=== PATIENT | male | born 1935 | race Asian ===

== ENCOUNTER 2016-11-02 21:16 | Inpatient (IN) | payer MEDICARE, BC ==
[~2016-11-02] VITALS: Ht 170.2 cm; Wt 77.1 kg
[2016-11-02 21:21] VITALS: BP 98/68
[2016-11-02] MEDS ORDERED: Piperacillin/Tazobactam 3.375 GM in NS 110 ML IVPB ONE (22:30)
[2016-11-02] MEDS ORDERED: Zosyn 3.375gm inj ONE (22:31)
--- NOTE | 2016-11-02 22:32 | Emergency Room Report ---
History of Present Illness General Chief Complaint: Dyspnea/Respdistress Source: Family Member, Medical Record, EMS Present Illness HPI This is an 81-year-old English male with a history of dementia, recent pneumonia. He also has failure to thrive. He has an NG tube in for feeding. Per EMS from detention and per his son, he has an altered mental status. Significantly weaker. Also has some dyspnea. Per Dr. Gil, he was hypotensive at the detention. Right now, he is a full code. No coughing or congestion. No abdominal pain. Unable to get history from the patient. Allergies: Coded Allergies: No Known Allergies (Unverified , 11/02/16) Patient History Past Medical History: see triage record, old chart reviewed, dementia Past Surgical History: other Pertinent Family History: none Social History: Denies: smoking Immunizations: other Reviewed Nursing Documentation: PMH: Agreed, PSxH: Agreed Nursing Documentation-PMH Past Medical History: No History, Except For Hx Hypertension: Yes Hx Pacemaker: No - PNA Hx Diabetes: Yes Hx Dialysis: No Hx Cerebrovascular Accident: Yes Review of Systems Constitutional: Reports: weakness Eye: Denies: blurred vision, eye pain ENT: Denies: ear pain, nose congestion, throat swelling Respiratory: Reports: shortness of breath, Denies: cough Cardiovascular: Denies: chest pain, palpitations Gastrointestinal: Denies: abdominal pain, diarrhea, nausea, vomiting Musculoskeletal: Denies: back pain, joint pain Skin: Denies: rash Neurological: Denies: headache, numbness Endocrine: Denies: increased thirst, increased urine Hematologic/Lymphatic: Denies: easy bruising All Other Systems: negative except mentioned in HPI Physical Exam Vital Signs Date Time Temp Pulse Resp B/P Pulse Ox O2 Delivery O2 Flow Rate FiO2 11/02/16 21:14 97.9 98 40 98/68 98 Nasal Cannula 2.0 vitals with fever. Rectal temp 100.2 Sp02 EP Interpretation: reviewed, normal General Appearance: mild distress, lethargic, Chronically Ill Head: normocephalic, atraumatic Eyes: bilateral eye EOMI, bilateral eye PERRL ENT: dry mucus membranes, other - NG tube Neck: full range of motion, supple, no meningismus Respiratory: chest non-tender, lungs clear, normal breath sounds Cardiovascular #1: regular rate, rhythm, no murmur Gastrointestinal: non tender, no mass, no organomegaly, no bruit, distended - tympanic Musculoskeletal: other - Pressure ulcers to heels and sacrum. Psychiatric: mood/affect normal Skin: warm/dry Procedures Critical Care Time Critical Care Time Critical care is mandated in this patient who presented with sepsis. Patient require my urgent intervention to attenuate the risks of metabolic collapse which may lead to cardiovascular collapse and . Critical care time is 35 minutes excluding any reportable procedure. Critical care time included evaluation, multiple reevaluation, looking at old charts, interpreting laboratory and diagnostic data, discussing case with patient and family and consultants, and charting. Medical Decision Making Diagnostic Impression: Primary Impression: Sigmoid volvulus Additional Impressions: Sepsis Qualified Codes: A41.9 - Sepsis, unspecified organism Dehydration Aspiration pneumonia Qualified Codes: J69.0 - Pneumonitis due to inhalation of food and vomit Anemia, chronic disease Hyperglycemia due to type 2 diabetes mellitus Qualified Codes: E11.65 - Type 2 diabetes mellitus with hyperglycemia ER Course Patient presents with altered mental status and has low-grade fever. His chest x-ray showed atelectasis. It also showed a very distended colon. His abdominal exam is very tympanic and distended. CT scan show a probable sigmoid volvulus. I discussed this with the radiologist. No obvious perforation. No free air. He has a Dobhoff tube for feeding. It was very small it was not suctioning very well. I had it removed and put in an NG tube. We will to suction out his to feeding. Flatus we'll also decompressed the gut. Wide spectrum antibiotic started. His Yi was empty of urine. There was no urine output with a new Yi. Now he start making very small amount of urine after 3 L of fluid. His condition is critical. He'll be admitted to the hospital. Laboratory Tests Test 11/02/16 22:30 White Blood Count 23.1 K/UL (4.8-10.8) *H Red Blood Count 2.93 M/UL (4.70-6.10) L Hemoglobin 9.7 G/DL (14.2-18.0) L Hematocrit 28.9 % (42.0-52.0) L Mean Corpuscular Volume 99 FL (80-99) Mean Corpuscular Hemoglobin 33.1 PG (27.0-31.0) H Mean Corpuscular Hemoglobin Concent 33.5 G/DL (32.0-36.0) Red Cell Distribution Width 13.8 % (11.6-14.8) Platelet Count 428 K/UL (150-450) Mean Platelet Volume 5.8 FL (6.5-10.1) L Neutrophils (%) (Auto) % (45.0-75.0) Lymphocytes (%) (Auto) % (20.0-45.0) Monocytes (%) (Auto) % (1.0-10.0) Eosinophils (%) (Auto) % (0.0-3.0) Basophils (%) (Auto) % (0.0-2.0) Differential Total Cells Counted 100 Neutrophils % (Manual) 93 % (45-75) H Lymphocytes % (Manual) 4 % (20-45) L Monocytes % (Manual) 3 % (1-10) Eosinophils % (Manual) 0 % (0-3) Basophils % (Manual) 0 % (0-2) Band Neutrophils 0 % (0-8) Platelet Estimate Adequate Platelet Morphology Normal Hypochromasia 1+ Anisocytosis 1+ Prothrombin Time 11.0 SEC (9.30-11.50) Prothromb Time International Ratio 1.1 (0.9-1.1) Activated Partial Thromboplast Time 26 SEC (23-33) Sodium Level 141 mEQ/L (135-145) Potassium Level 3.3 mEQ/L (3.4-4.9) L Chloride Level 101 mEQ/L (98-107) Carbon Dioxide Level 23 mEQ/L (20-30) Anion Gap 17 (5-15) H Blood Urea Nitrogen 43 mg/dL (7-23) H Creatinine 1.0 mg/dL (0.7-1.2) Estimat Glomerular Filtration Rate mL/min (>60) Glucose Level 264 mg/dL (74-106) H Lactic Acid Level 4.20 mmol/L (0.66-2.22) H Calcium Level 8.7 mg/dL (8.6-10.2) Total Bilirubin 0.4 mg/dL (0.0-1.2) Aspartate Amino Transf (AST/SGOT) 101 U/L (5-40) H Alanine Aminotransferase (ALT/SGPT) 33 U/L (3-41) Alkaline Phosphatase 71 U/L (40-129) Total Creatine Kinase 102 U/L (38-174) Creatine Kinase MB 3.0 ng/mL (< 6.7) Creatine Kinase MB Relative Index 2.9 Troponin I < 0.30 ng/mL (<=0.30) Total Protein 6.8 g/dL (6.6-8.7) Albumin 2.9 g/dL (3.5-5.2) L Globulin 3.9 g/dL Albumin/Globulin Ratio 0.7 (1.0-2.7) L Lab Results Impression labs with high white count EKG Diagnostic Results Rate: normal Rhythm: NSR ST Segments: other - bifasicular block Rhythm Strip Diag. Results EP Interpretation: yes Rate: 90 Rhythm: NSR, no PVC's, no ectopy Chest X-Ray Diagnostic Results EP Interpretation: Yes Findings: no effusion, no pneumothorax, other - atelectasis. [place] sign vs free air. Number of Views: 1 Last Vital Signs Date Time Temp Pulse Resp B/P Pulse Ox O2 Delivery O2 Flow Rate FiO2 11/02/16 21:14 97.9 98 40 98/68 98 Nasal Cannula 2.0 Status: improved Disposition: ADMITTED INPATIENT Condition: Critical JONO LANGLEY M.D. Nov 02, 2016 22:32
[2016-11-02 22:41] LABS: MEAN CORPUSCULAR HEMOGLOBIN 33.1 PG (27.0-31.0); MEAN CORPUSCULAR HGB CONC 33.5 G/DL (32.0-36.0); MEAN CORPUSCULAR VOLUME 99 FL (80-99); MEAN PLATELET VOLUME 5.8 FL (6.5-10.1); PLATELET COUNT 428 K/UL (150-450); RED BLOOD COUNT 2.93 M/UL (4.70-6.10); RED CELL DISTRIBUTION WIDTH 13.8 % (11.6-14.8)
[2016-11-02 22:43] LABS: WHITE BLOOD COUNT 23.1 K/UL (4.8-10.8)
[2016-11-02 22:52] LABS: INR 1.1 (0.9-1.1)
[2016-11-02 22:58] LABS: ALANINE AMINOTRANSFERASE 33 U/L (3-41); ALBUMIN/GLOBULIN RATIO 0.7 (1.0-2.7); ANION GAP 17 (5-15); ASPARTATE AMINO TRANSFERASE 101 U/L (5-40); CALCIUM 8.7 mg/dL (8.6-10.2); CARBON DIOXIDE 23 mEQ/L (20-30); CHLORIDE 101 mEQ/L (98-107); HEMOLYSIS 12; POTASSIUM 3.3 mEQ/L (3.4-4.9); SODIUM 141 mEQ/L (135-145); TOTAL PROTEIN 6.8 g/dL (6.6-8.7); TROPONIN I < 0.30 ng/mL (<=0.30)
[2016-11-02 23:02] LABS: REFLEX LACTIC ACID YES OR NO YES
[2016-11-02 23:05] VITALS: BP 112/52
[2016-11-02 23:13] LABS: LYMPHOCYTES % (MANUAL) 4 % (20-45); NEUTROPHILS % (MANUAL) 93 % (45-75); TOTAL CELLS COUNTED 100
[2016-11-02 23:14] LABS: ANISOCYTOSIS 1+; BAND NEUTROPHILS % (MANUAL) 0 % (0-8); BASOPHILS % (MANUAL) 0 % (0-2); EOSINOPHILS % (MANUAL) 0 % (0-3); HYPOCHROMASIA 1+; PLATELET ESTIMATE ADEQUATE; PLATELET MORPHOLOGY NORMAL
[2016-11-03] VITALS (47 sets, daily range): BP systolic 0–178; BP diastolic 17–97
[2016-11-03] MEDS ORDERED: Levophed 4mg/4mL Inj IV ONE ×3 (02:55→11:46)
[2016-11-03 03:25] LABS: ABG PCO2 28.5 mmHg (35.0-45.0)
[2016-11-03 03:26] LABS: ABG ALLEN TEST POSITIVE
[2016-11-03] MEDS ORDERED: Succinylcholine 20mg/ml 10ml vial IV ONE (04:30)
[2016-11-03] MEDS ORDERED: Etomidate 40mg/20ml Inj IV ONE ×2 (04:30→16:56)
[2016-11-03 05:43] LABS: APPEARANCE,URINE CLOUDY; KETONES,URINE 2+ (NEGATIVE); LEUKOCYTE ESTERASE ,URINE 2+ (NEGATIVE); NITRITE,URINE POSITIVE (NEGATIVE); PH,URINE 5 (4.5-8.0); PROTEIN,URINE 3+ (NEGATIVE); UROBILINOGEN,URINE 4 MG/DL (0.0-1.0)
[2016-11-03 05:46] LABS: RBC,URINE TNTC /HPF (0 - 0); SQUAMOUS EPITHELIAL CELL,UR FEW /LPF (NONE/OCC)
[2016-11-03 05:47] LABS: AMORPHOUS SEDIMENT,UR MODERATE /LPF; BACTERIA,URINE MODERATE /HPF; CALCIUM OXALATE CRYSTALS,UR FEW /LPF; ICTOTEST POSITIVE
--- NOTE | 2016-11-03 06:00 | Emergency Room Report ---
Physical Exam Vital Signs Date Time Temp Pulse Resp B/P Pulse Ox O2 Delivery O2 Flow Rate FiO2 11/02/16 21:14 97.9 98 40 98/68 98 Nasal Cannula 2.0 11/03/16 01:47 100 Medical Decision Making Diagnostic Impression: Primary Impression: Sigmoid volvulus Additional Impressions: Aspiration pneumonia Qualified Codes: J69.0 - Pneumonitis due to inhalation of food and vomit Hyperglycemia due to type 2 diabetes mellitus Qualified Codes: E11.65 - Type 2 diabetes mellitus with hyperglycemia Sepsis Qualified Codes: A41.9 - Sepsis, unspecified organism Anemia, chronic disease Dehydration Proteinuria UTI (urinary tract infection) Qualified Codes: N30.00 - Acute cystitis without hematuria ER Course Patient continued to deteriorate. He remained persistently hypotensive despite fluid boluses. He was not making urine. Because of this I proceeded to intubate the patient. I explained this to family. Explained to critical condition that patient in. He may from this. I also explained that he may need surgery and he has a very high risk. They express understanding. Patient was intubated and placed on pressors. Blood pressure improved. He started to make urine now. Chest X-Ray Diagnostic Results EP Interpretation: Yes Findings: no effusion, no pneumothorax, other - atelectasis, ETT in good position. Central line in good position. Number of Views: 1 Last Vital Signs Date Time Temp Pulse Resp B/P Pulse Ox O2 Delivery O2 Flow Rate FiO2 11/03/16 04:32 122 27 40 11/03/16 04:20 90/51 100 Mechanical Ventilator 11/03/16 03:18 98.0 11/03/16 01:30 2.0 Status: worsened Disposition: ADMITTED INPATIENT Condition: Critical Referrals: NON PHYSICIAN (PCP) Central Line Central Line : Consent: Emergent Central Line Lumen: triple Maximal Sterile Barrier Tech: yes cap, yes mask, yes sterile gown, yes sterile gloves, yes large sterile sheet, yes hand hygiene, yes chlorhexidine prep Central Line Postion: internal jugular (R) Complications: none Central Line Post Position: sutured, good blood return, position confirmed w / CXR Attempts: One Patient Tolerated: Well Complications: None Progress Using ultrasound guidance, I place a triple-lumen in the right IJ. This was done under to her condition using setting to technique. Patient tolerated procedure without a problem. No complication. Intubation Intubation : Consent: Emergent Intubation Method: orotracheal Tube Size (cm): 7.5 Medications: Etomidate, Succinylcholine Breath Sounds after Intubation: equal Intubation Complications: no complications Post Intubation Xray: Yes Progress/Xray Impression: Endotracheal tube in good position. No pneumothorax Attempts: One Patient Tolerated: Well Complications: None Progress Patient intubated without difficulty. He was given etomidate and succinylcholine. Endotracheal tube confirmed by x-ray. I visualized it going through the vocal cords. There could condensation in the tube. Good CO2 color change. Equal breath sounds bilaterally. Nothing in the epigastric area. JONO LANGLEY M.D. Nov 03, 2016 06:00
[2016-11-03] MEDS ORDERED: ASPIRIN300 MG BC (06:23)
[2016-11-03] MEDS ORDERED: ASCORBIC ACID500 MG ORAL (06:23)
[2016-11-03] MEDS ORDERED: FERROUS SULFAT325 M2 ORAL (06:23)
[2016-11-03] MEDS ORDERED: MEGACE400 MG/11 PO (06:23)
[2016-11-03] MEDS ORDERED: ZINC SULFATE220 M2 ORAL (06:23)
[2016-11-03] MEDS ORDERED: SINEMET 25/1001 EA ORAL (06:23)
[2016-11-03] MEDS ORDERED: GABAPENTIN100 MG ORAL (06:23)
[2016-11-03] MEDS ORDERED: MULTIVITAMINS1 EAC2 ORAL (06:23)
[2016-11-03] MEDS ORDERED: EPLERENONE25 MG PO (06:23)
[2016-11-03] MEDS ORDERED: CLOPIDOGREL75 MG ORAL (06:23)
[2016-11-03] MEDS ORDERED: FINASTERIDE5 MG ORAL (06:23)
[2016-11-03] MEDS ORDERED: AMANTADINE50 MG/5 ML ORAL (06:23)
[2016-11-03] MEDS ORDERED: LIPITOR80 MG ORAL (06:23)
[2016-11-03 06:33] LABS: MEAN CORPUSCULAR HEMOGLOBIN 32.4 PG (27.0-31.0); MEAN CORPUSCULAR HGB CONC 33.1 G/DL (32.0-36.0); MEAN CORPUSCULAR VOLUME 98 FL (80-99); MEAN PLATELET VOLUME 6.2 FL (6.5-10.1); PLATELET COUNT 457 K/UL (150-450); RED BLOOD COUNT 2.66 M/UL (4.70-6.10); RED CELL DISTRIBUTION WIDTH 13.7 % (11.6-14.8); WHITE BLOOD COUNT 18.7 K/UL (4.8-10.8)
[2016-11-03 06:46] LABS: ANION GAP 19 (5-15); CALCIUM 7.2 mg/dL (8.6-10.2); CARBON DIOXIDE 18 mEQ/L (20-30); CHLORIDE 103 mEQ/L (98-107); HEMOLYSIS 0; SODIUM 140 mEQ/L (135-145)
[2016-11-03 06:49] LABS: POTASSIUM 2.5 mEQ/L (3.4-4.9)
[2016-11-03 06:50] LABS: REFLEX LACTIC ACID YES OR NO YES
[2016-11-03 08:00] LABS: BAND NEUTROPHILS % (MANUAL) 4 % (0-8); BASOPHILS % (MANUAL) 0 % (0-2); EOSINOPHILS % (MANUAL) 0 % (0-3); LYMPHOCYTES % (MANUAL) 5 % (20-45); NEUTROPHILS % (MANUAL) 90 % (45-75); PLATELET ESTIMATE INCREASED; PLATELET MORPHOLOGY NORMAL; TOTAL CELLS COUNTED 100
[2016-11-03] MEDS: Heparin 5000 units/ml inj SUBQ SCH ×2 (09:00→20:04)
--- NOTE | 2016-11-03 09:28 | Diagnostic Imaging Report ---
Indication: Abdominal pain Technique: Spiral acquisitions obtained through the abdomen and pelvis. No oral contrast utilized, per emergency room physician request No IV contrast utilized, per referring physician request.. Multiplanar reconstructions were generated. Total dose length product 819 mGycm. CTDIvol(s) 13 mGy Comparison: None Findings: There is anasarca, with diffuse edema of the subcutaneous, mesenteric, and retroperitoneal fat as well as small bilateral pleural effusions. The colon is massively dilated diffusely. There appears to be an abrupt transition to nondistended colon at the level of the distal sigmoid. There is suggestion of some twisting of the mesenteric root at the point of obstruction. Of note, however, only a single transition point is demonstrated. The small bowel is nondilated. There is a nasogastric tube in place, tip of which is just inside the gastric lumen; suspect the proximal port may be above the gastroesophageal junction. There is a small sliding-type hiatal hernia and mild distention of the distal esophagus. The appendix is not definitely demonstrated, but there are no findings to suggest acute appendicitis. No evidence of diverticulosis or diverticulitis. No free or loculated intraperitoneal air or fluid. A dense calcification is seen adjacent to the transverse colon within the soft tissues. Lack of IV contrast limits assessment of the solid organs. The liver, gallbladder, bile ducts, pancreas, spleen, adrenals are unremarkable. The kidneys are somewhat atrophic. The left kidney demonstrates a 2.5 cm cyst. The right kidney demonstrates a 2 mm upper pole nonobstructing calculus. No pelvic mass or adenopathy. There is a Yi catheter within the bladder which is nondistended. The bones demonstrate compression fracture deformities of the T12 and L2 vertebral bodies. There is evidence of prior vertebral body augmentation procedure at L2. The lung bases demonstrate compressive atelectatic changes as well as fairly extensive consolidation. There is a pericardial effusion measuring up to 8 mm thick. Impression: Massive diffuse colonic distention, with abrupt transition at the level of the distal sigmoid. Some twisting of the mesentery at the point of obstruction raises possibility of sigmoid volvulus or, less likely internal hernia as etiology of this. However, presence of only a single transition point would be unusual for a closed-loop obstruction. Anasarca Nasogastric tube, appears to be barely within the stomach. Advancement recommended Small sliding-type hiatal hernia. Mild distention of the distal esophagus Yi catheter within nondistended bladder T12 and L2 vertebral body compression fractures, evidence of prior vertebral augmentation procedure at L2 Bilateral basilar compressive pulmonary atelectasis and consolidation and bilateral pleural effusions Pericardial effusion Nonobstructing right upper pole renal calculus Incidental finding of left renal cyst This agrees with the preliminary interpretation provided overnight by [facility] teleradiology service. Images also reviewed in person with Dr. Barnes The CT scanner at [facility] is accredited by the [employer] and the scans are performed using protocols designed to limit radiation exposure to as low as reasonably achievable to attain images of sufficient resolution adequate for diagnostic evaluation.
[2016-11-03] MEDS: Pantoprazole Inj IVP SCH (09:31)
--- NOTE | 2016-11-03 09:51 | General Progress Note ---
Progress Note Progress Note Chart reviewed, pt examined, consult dictated. Impression: Colonic obstruction due to sigmoid volvulus, possible aspiration pneumonitis, Parkinson's disease, DM. Plan: case discussed with Dr Gil, we will consult GI staff for flexible sigmoidoscopy for colonic decompression. Andrew Barnes MD Nov 03, 2016 09:51
--- NOTE | 2016-11-03 10:06 | Diagnostic Imaging Report ---
Indication: Shortness of breath Technique: One view of the chest Comparison: none Findings: There is a nasogastric tube in place, the projected beyond the image. There is bilateral basilar atelectasis, possibly some retrocardiac consolidation. There is massive distention of the colon. Impression: Bibasilar atelectasis and possibly some retrocardiac consolidation Satisfactory nasogastric intubation Massively distended colon, also described on subsequent CT scan This agrees with the preliminary interpretation provided by the emergency room physician
[2016-11-03] MEDS: Piperacillin/Tazobactam 3.375 GM in D5W 110 ML IVPB SCH ×2 (10:30→21:24)
[2016-11-03] MEDS ORDERED: Zosyn 3.375gm inj ONE (10:42)
[2016-11-03] MEDS ORDERED: Acetaminophen 650 MG SUPP RECTAL ONE ×3 (10:42→11:45)
[2016-11-03] MEDS: metroNIDAZOLE 500mg 100 ML IVPB SCH ×2 (10:51→21:46)
--- NOTE | 2016-11-03 11:07 | Diagnostic Imaging Report ---
Indication: SOB, post line placement, post intubation Technique: One view of the chest Comparison: 4 hours earlier Findings: Interim placement of a right jugular central venous catheter, tip of which projects at the level of the high right atrium. No gross pneumothorax. Interim endotracheal intubation, endotracheal tube tip projecting approximately 4 cm above the aston. The nasogastric tube has retracted, tip now barely within the stomach. Again demonstrated are bilateral basilar atelectasis, retrocardiac dilatation, and marked distention of the colon. Left humeral fracture deformity, possibly incompletely united, again demonstrated Impression: Satisfactory endotracheal intubation Satisfactory position of right jugular central venous catheter High position of nasogastric tube Other stable findings as described Images previously reviewed in person with Dr. Barnes
[2016-11-03] MEDS: Phenylephrine 50 MG in D5W 245 ML IV SCH (12:00)
[2016-11-03 12:05] LABS: ABG BASE EXCESS -10.4
--- NOTE | 2016-11-03 14:11 | Diagnostic Imaging Report ---
Indication: Chest Technique: One view of the chest Comparison: 11 hours earlier Findings: Nasogastric tube is now in the distal esophagus, further withdrawn on the prior study. Stable satisfactory position of endotracheal tube. Central venous catheter is deep within the right atrium. Bilateral basilar atelectasis and retrocardiac consolidation persists, unchanged. Impression: Stable bilateral basilar parenchymal disease, over 11 hours Malposition of nasogastric tube. Recommend advancement Low position of central venous catheter, deep within the right atrium. Recommend withdrawal by about 3 cm Findings discussed by phone with charge nurse, Paige, at the time of interpretation
[2016-11-03] MEDS: D5NS 1,000 ML IV SCH ×2 (14:13→21:23)
[2016-11-03 14:28] LABS: ANION GAP 23 (5-15); CALCIUM 7.2 mg/dL (8.6-10.2); CARBON DIOXIDE 15 mEQ/L (20-30); CHLORIDE 99 mEQ/L (98-107); CREATININE 1.3 mg/dL (0.7-1.2); HEMOLYSIS 1; POTASSIUM 2.8 mEQ/L (3.4-4.9); SODIUM 137 mEQ/L (135-145)
--- NOTE | 2016-11-03 14:42 | Diagnostic Imaging Report ---
Indication: Abdominal pain Technique: Supine view of the abdomen Comparison: [employer] radiograph from abdominal CT of 11/02/2016 Findings: Again demonstrated is diffuse distention of the colon extending to the level of the distal sigmoid degree of distention is similar to the previous study. No definite small bowel dilatation. There is evidence of prior L2 vertebral limitation procedure again demonstrated. Previously demonstrated nasogastric tube is not evident. Pleural and parenchymal disease are again demonstrated at both lung bases Impression: Diffusely distended colon, unchanged from previous exam of one day earlier Other stable findings as noted
[2016-11-03] MEDS: Vancomycin 1250mg/D5W 275ml IVPB SCH ×2 (16:03)
--- NOTE | 2016-11-03 16:08 | Consultation ---
DATE OF CONSULTATION: 11/03/2016 SURGICAL CONSULTATION REASON FOR CONSULTATION: Abdominal distention and respiratory distress. HISTORY OF PRESENT ILLNESS: This 81-year-old male, who has an 8-year history of Parkinson disease and diabetes, who was brought in by ambulance last night with problems of decreased mentation on the notes. Apparently, there was a question of vomiting and an aspiration pneumonitis. The patient was found to have abdominal distention. There was concern on x-ray studies regarding a possible sigmoid volvulus. PAST MEDICAL HISTORY: Previous surgeries, the patient had some percutaneous procedure for a lumbar disk in the past. He has had Parkinson disease for eight years. He is a long-standing diabetic. He was living at home until two weeks ago when he was hospitalized for pneumonia at [facility]. He improved after one week and was transferred to a rehabilitation facility. The patient was able to communicate and recognize family members two weeks prior to this admission. MEDICATIONS: Amantadine 100 mg twice a day, vitamin C 500 mg daily, aspirin 300 mg by a rectal suppository, Lipitor 80 mg daily, Plavix 75 mg daily, 25 mg daily, ferrous sulfate 325 mg daily, finasteride 5 mg daily, Neurontin 100 mg three times a day, Sinemet one tablet three times a day, Megace 40 mg daily, multivitamin one tablet daily and zinc sulfate 220 mg daily. ALLERGIES: None known. SOCIAL HISTORY: Tobacco, none. Alcohol, none. FAMILY HISTORY: Positive for diabetes mellitus. REVIEW OF SYSTEMS: Unobtainable. PHYSICAL EXAMINATION: GENERAL: An elderly [place] male who is intubated. HEENT: Normocephalic. Pupils are equal and reactive to light. There was no scleral icterus. NECK: Supple without adenopathy. LUNGS: Clear. HEART: Regular rhythm. ABDOMEN: Somewhat distended and tympanitic. Mechanical bowel sounds are present. There were no inguinal hernias. RECTAL: Normal sphincter tone. There was some loose stool in the rectal vault. EXTREMITIES: No clubbing, cyanosis, or edema. Peripheral pulses were present. LABORATORY AND DIAGNOSTIC DATA: The CT scan of the abdomen was reviewed with the radiologist, there is colonic distention starting at the distal sigmoid with collapse of the rectal segment. There was no free air. The findings are suspicious for a sigmoid volvulus. There were also bibasilar infiltrates in both lungs. Laboratory studies, CBC showed a white blood count of 18,700, hemoglobin 8.6 grams percent, hematocrit 26% and platelet count 467,000. Clinical chemistry showed a sodium of 140, potassium 2.5, chloride 103, bicarbonate 18, BUN 44, creatinine 1.0 and glucose 231. Calcium 7.2. Lactic acid 3.6. IMPRESSION: 1. Possible aspiration pneumonia. 2. Colonic distention, consistent with a partial sigmoid volvulus. 3. Diabetes mellitus. 4. Parkinson disease. The patient is currently on Plavix. PLAN: The patient will need to be evaluated by a business practices officer. The most prudent course at this time would be a flexible sigmoidoscopy and/or colonoscopy with decompression of the colon. Thank you. Andrew Barnes M.D. DR: CHAUNCEY JOB#: [id number] CC:
[2016-11-03] MEDS ORDERED: Calcium Chloride 10% 10ml carpuject IVP ONE (16:48)
[2016-11-03] MEDS ORDERED: Sodium Bicarbonate 8.4% 50ml Carp ONE (16:48)
[2016-11-03] MEDS ORDERED: EPINEPHrine 1mg/10ml carp IV ONE (16:48)
[2016-11-03] MEDS ORDERED: Succinylcholine 20mg/ml 10ml vial ONE (16:56)
--- NOTE | 2016-11-03 17:06 | General Progress Note ---
Assessment/Plan Assessment/Plan GI CONSULT Full note to follow D/w Family, RN and surgeon multiple times Plans made earlier to possibly take patient to surgery, if stabilizes. Now s/p code blue and moribund Expect patient to soon Will d/w family again Josselyn Lentz MD Subjective Allergies: Coded Allergies: No Known Allergies (Unverified , 11/02/16) Objective Last 24 Hour Vital Signs Date Time Temp Pulse Resp B/P Pulse Ox O2 Delivery O2 Flow Rate FiO2 11/03/16 16:09 138 11/03/16 14:43 143 30 40 11/03/16 14:14 100/70 11/03/16 13:00 100 11/03/16 12:47 143 33 40 11/03/16 12:08 144 28 111/69 100 Mechanical Ventilator 100 11/03/16 12:00 144 100/70 11/03/16 11:55 111/69 11/03/16 11:46 102.9 124 27 71/44 92 Mechanical Ventilator 40 11/03/16 11:45 97/58 11/03/16 11:30 82/41 11/03/16 11:00 96/56 11/03/16 10:39 107 34 40 11/03/16 10:39 94/62 11/03/16 10:30 94/62 11/03/16 10:30 152 35 93/63 94 Mechanical Ventilator 40 11/03/16 10:00 119/82 11/03/16 09:30 104/68 11/03/16 09:14 110/66 11/03/16 09:00 99.8 149 32 96/63 95 Mechanical Ventilator 40 11/03/16 09:00 90/66 11/03/16 08:57 147 33 40 11/03/16 08:30 98/72 11/03/16 08:15 97/67 11/03/16 08:00 109/65 11/03/16 08:00 99.6 144 32 109/65 99 Mechanical Ventilator 40 11/03/16 07:45 97/56 11/03/16 07:30 82/58 11/03/16 07:15 99.4 133 37 103/54 97 Mechanical Ventilator 40 11/03/16 07:15 99/64 11/03/16 06:53 147 35 40 11/03/16 06:30 98.4 135 33 113/75 99 Mechanical Ventilator 40 11/03/16 04:32 122 27 40 11/03/16 04:20 118 34 90/51 100 Mechanical Ventilator 40 11/03/16 03:27 40 11/03/16 03:24 40 11/03/16 03:18 98.0 85 33 76/54 100 Mechanical Ventilator 100 11/03/16 03:15 76/54 11/03/16 02:45 110 20 100 11/03/16 01:47 100 11/03/16 01:30 87 33 67/53 86 Nasal Cannula 2.0 11/03/16 00:30 98.0 84 26 87/50 87 Nasal Cannula 2.0 11/02/16 23:05 97.9 97 29 112/52 98 Nasal Cannula 2.0 11/02/16 21:21 97.9 87 40 98/68 98 Nasal Cannula 2.0 11/02/16 21:21 98 40 Nasal Cannula 2.0 11/02/16 21:14 97.9 98 40 98/68 98 Nasal Cannula 2.0 Intake and Output 11/02/16 11/03/16 19:00 07:00 Intake Total 4000 ml Balance 4000 ml IV Total 4000 ml Laboratory Tests 11/02/16 22:30: White Blood Count 23.1*H, Red Blood Count 2.93L, Hemoglobin 9.7L, Hematocrit 28.9L, Mean Corpuscular Volume 99, Mean Corpuscular Hemoglobin 33.1H, Mean Corpuscular Hemoglobin Concent 33.5, Red Cell Distribution Width 13.8, Platelet Count 428, Mean Platelet Volume 5.8L, Neutrophils (%) (Auto) , Lymphocytes (%) ( Auto) , Monocytes (%) (Auto) , Eosinophils (%) (Auto) , Basophils (%) (Auto) , Differential Total Cells Counted 100, Neutrophils % (Manual) 93H, Lymphocytes % (Manual) 4L, Monocytes % (Manual) 3, Eosinophils % (Manual) 0, Basophils % ( Manual) 0, Band Neutrophils 0, Platelet Estimate Adequate, Platelet Morphology Normal, Hypochromasia 1+, Anisocytosis 1+, Prothrombin Time 11.0, Prothromb Time International Ratio 1.1, Activated Partial Thromboplast Time 26, Sodium Level 141, Potassium Level 3.3L, Chloride Level 101, Carbon Dioxide Level 23, Anion Gap 17H, Blood Urea Nitrogen 43H, Creatinine 1.0, Estimat Glomerular Filtration Rate , Glucose Level 264H, Lactic Acid Level 4.20H, Calcium Level 8.7 , Total Bilirubin 0.4, Aspartate Amino Transf (AST/SGOT) 101H, Alanine Aminotransferase (ALT/SGPT) 33, Alkaline Phosphatase 71, Total Creatine Kinase 102, Creatine Kinase MB 3.0, Creatine Kinase MB Relative Index 2.9, Troponin I < 0.30, Total Protein 6.8, Albumin 2.9L, Globulin 3.9, Albumin/Globulin Ratio 0.7L 11/03/16 01:00: Lactic Acid Level 1.80 11/03/16 03:20: Arterial Blood pH 7.430, Arterial Blood Partial Pressure CO2 28.5L, Arterial Blood Partial Pressure O2 163.3H, Arterial Blood HCO3 18.5L, Arterial Blood Oxygen Saturation 98.8H, Arterial Blood Base Excess -5.0, Kenny Test Positive 11/03/16 04:50: Urine Color Kayleen, Urine Appearance Cloudy, Urine pH 5, Urine Specific [place] 1.020, Urine Protein 3+H, Urine Glucose (UA) 1+H, Urine Ketones 2+H, Urine Occult Blood 5+H, Urine Nitrite PositiveH, Urine Bilirubin 2+H, Urine Ictotest Positive, Urine Urobilinogen 4H, Urine Leukocyte Esterase 2+H, Urine RBC TntcH, Urine WBC 10-15H, Urine Squamous Epithelial Cells Few, Urine Calcium Oxalate Crystals Few, Urine Amorphous Sediment ModerateH, Urine Bacteria ModerateH 11/03/16 06:00: White Blood Count 18.7H, Red Blood Count 2.66L, Hemoglobin 8.6L, Hematocrit 26.0L, Mean Corpuscular Volume 98, Mean Corpuscular Hemoglobin 32.4H, Mean Corpuscular Hemoglobin Concent 33.1, Red Cell Distribution Width 13.7, Platelet Count 457H, Mean Platelet Volume 6.2L, Neutrophils (%) (Auto) , Lymphocytes (%) (Auto) , Monocytes (%) (Auto) , Eosinophils (%) (Auto) , Basophils (%) (Auto) , Differential Total Cells Counted 100, Neutrophils % (Manual) 90H, Lymphocytes % (Manual) 5L, Monocytes % (Manual) 1, Eosinophils % (Manual) 0, Basophils % ( Manual) 0, Band Neutrophils 4, Platelet Estimate IncreasedH, Platelet Morphology Normal, Red Blood Cell Morphology Normal, Sodium Level 140, Potassium Level 2.5*L, Chloride Level 103, Carbon Dioxide Level 18L, Anion Gap 19H, Blood Urea Nitrogen 44H, Creatinine 1.0, Estimat Glomerular Filtration Rate , Glucose Level 231H, Lactic Acid Level 3.60H, Calcium Level 7.2L 11/03/16 11:52: Arterial Blood pH 7.330L, Arterial Blood Partial Pressure CO2 28.0L, Arterial Blood Partial Pressure O2 62.0L, Arterial Blood HCO3 14.4L, Arterial Blood Oxygen Saturation 90.0L, Arterial Blood Base Excess -10.4, Kenny Test 11/03/16 12:55: Lactic Acid Level 6.20H 11/03/16 13:45: Sodium Level 137, Potassium Level 2.8L, Chloride Level 99, Carbon Dioxide Level 15L, Anion Gap 23H, Blood Urea Nitrogen 45H, Creatinine 1.3H, Estimat Glomerular Filtration Rate , Glucose Level 296H, Calcium Level 7.2L Height (Feet): 5 Height (Inches): 7.00 Weight (Pounds): 170 SHERMANJOSSELYN KOCH Nov 03, 2016 17:06
--- NOTE | 2016-11-03 17:38 | Consultation ---
DATE OF CONSULTATION: 11/03/2016 INFECTIOUS DISEASES CONSULTATION CONSULTING PHYSICIAN: Minal Farias M.D. REFERRING PHYSICIAN: Jorge Luis Williamson M.D. REASON FOR CONSULTATION: Septic shock. HISTORY OF PRESENTING ILLNESS: This is an 81-year-old gentleman with history of dementia, hypertension, and CVA, who came in with altered mental status. He was found to be hypotensive. He was seen in [facility] where he was found to have a probable sigmoid volvulus on a CT abdomen. There is also a concern for aspiration pneumonia. He has a leukocytosis and an Infectious Diseases consultation has been obtained for antibiotics. PAST MEDICAL HISTORY: 1. History of dementia. 2. Hypertension. 3. Diabetes. 4. CVA. MEDICATIONS: As an inpatient, the patient is on Zosyn, Flagyl, Protonix, subcutaneous heparin, intravenous vancomycin, and Levophed. ALLERGIES: No known drug allergies. SOCIAL HISTORY: Unknown. FAMILY HISTORY: Unknown. REVIEW OF SYSTEMS: Unable to obtain currently. PHYSICAL EXAMINATION: VITAL SIGNS: Temperature of 99.8 degrees, pulse of 149, respiratory rate 32, blood pressure 94/62, and O2 saturation of 95%. HEENT: Pupils equally reactive to light and accommodation. Mouth appears clean without thrush. The patient is intubated. NECK: Supple. No adenopathy. No JVD. CARDIOVASCULAR: Regular rate and rhythm. No murmurs. LUNGS: Clear to auscultation bilaterally. No crackles. No wheezes. ABDOMEN: Soft and distended. EXTREMITIES: No cyanosis. No clubbing. He has edema noted bilaterally. He has a neck right IJ catheter. LABORATORY DATA: White count of 18.7, white count of 23.1 yesterday, hemoglobin 8.6, hematocrit 26, MCV 98, and platelet count of 457,000 with neutrophils of 90%. Sodium 140, potassium 2.5, chloride 103, bicarb 18, BUN 44, creatinine 1, glucose 231, and calcium of 7.2. Lactic acid 3.6. Troponin less than 0.3. Total bilirubin 0.4. AST 101, AST 33, and alkaline phosphatase 71. CK 102 and CK-MB of 3. Total protein 6.8. Albumin 2.9. UA showing 10 to 15 white cells. Urine cultures are pending. Blood cultures are pending. Chest x-ray is showing bibasilar atelectasis and possible retrocardiac consolidation. CT abdomen and pelvis is showing massive diffuse colonic distention with abrupt transition at the level of the distal sigmoid, possibility of sigmoid volvulus noted, bibasilar consolidation and pleural effusions noted, pericardial effusion seen, and nonobstructing right upper pole renal calculus seen. ASSESSMENT: 1. This is an 81-year-old gentleman with history of dementia, who comes in with sigmoid volvulus. 2. He also is in septic shock. 3. Leukocytosis is improving. 4. He also possibly has an aspiration pneumonia. 5. He also probably has a urinary tract infection. PLAN: 1. Agree with IV vancomycin, Zosyn, and Flagyl. 2. We will follow up cultures and adjust antibiotics accordingly. 3. Plan as per Surgery. I would like to thank Dr. Williamson for this consultation. Minal Farias M.D. DR: NISHI JOB#: [id number] CC: Jorge Luis Williamson M.D.
--- NOTE | 2016-11-03 18:09 | History and Physical Report ---
DATE OF ADMISSION: 11/02/2016 CHIEF COMPLAINT: Septic shock, respiratory failure, and volvulus. HISTORY OF PRESENT ILLNESS: The patient is an 81-year-old male. He has a history of diabetes, hypertension, and Parkinson disease. He presented with complaints of shortness of breath. The patient was previously hospitalized several weeks ago in an outside hospital for aspiration pneumonia. He had an NG tube at that time and was continued on NG tube feedings at the group home facility. Family noted that he was short of breath and transferred him to the emergency room. On evaluation there, he had evidence of retrocardiac pneumonia. He had elevated lactic acid level. He was also noted to be distended. He had a CAT scan that showed massively dilated colon with a possible volvulus. The patient had became progressively more hypotensive and is now on pressors for blood pressure support. He has also been orally intubated. PAST MEDICAL HISTORY: As above. PAST SURGICAL HISTORY: Back surgery. MEDICATIONS: Current medications reconciled and reviewed. ALLERGIES: None. SOCIAL HISTORY: There is no known history of tobacco, ethanol, or drugs. FAMILY HISTORY: None. REVIEW OF SYSTEMS: From the patient is unobtainable, as he is nonverbal. PHYSICAL EXAMINATION: GENERAL: The patient is poorly responsive. He is awake and orally intubated. VITAL SIGNS: Temperature 99.8 degrees, blood pressure was 96/63, pulse of 150, and respirations 32. NECK: Supple. There is no jugular venous distention. HEART: Regular rate and rhythm. LUNGS: Clear anteriorly. ABDOMEN: Distended and tense. There is no rebound or guarding. There are diminished bowel sounds. EXTREMITIES: No clubbing, cyanosis, or edema. LABORATORY AND DIAGNOSTIC DATA: There are 10-15 WBCs. White count was 23,000, hemoglobin 9.7, hematocrit 28.9, and platelet count of 428,000. ABG showed pH of 7.43, pCO2 28, pO2 163, bicarbonate 18 and O2 saturation 98%. Coagulations are normal. Sodium is 142, potassium 2.5, chloride 103, bicarbonate 18, BUN 44, and creatinine 1. Lactic acid was 3.6. Chest x-ray showed a retrocardiac opacity. ASSESSMENT: This is an unfortunate male admitted with complaints of volvulus, sepsis, shock, respiratory failure, aspiration pneumonia, diabetes, and hypokalemia. PLAN: Vent support. Continue pressors. Aggressive fluid resuscitation. Broad-spectrum IV antibiotics. Surgery evaluation. The patient's prognosis is poor. This has been discussed with family members. The patient remains a Full Code. We will readdress as needed. Jorge Luis Williamson M.D. DR: AGA JOB#: [id number] CC:
--- NOTE | 2016-11-03 18:36 | General Progress Note ---
Progress Note Progress Note Surgery: Patient seen and examined at bedside. Recently had event requiring ACLS resuscitation with CPR for approximately 10 minutes. Able to regain pulse and pressure. currently on pressors and continues to be unstable. Spoke with patients family including son and . They were present during code and understand his serious condition. Earlier we discussed potential for operative intervention if he would stabilize but he has not done so and continues to deteriorate. Spoke with anesthesia and agree that heroic actions given his current state could result in his decline in the OR. He is very unstable and could potentially code upon induction. Furthermore, when these risks were discussed with the family they state that heroic surgery would not be desired. They are understanding of his serious condition and poor prognosis. They have decided to wait for more family to arrive prior to making further decisions. They do not desire procedures or surgery at this time. They would like him to remain Full code until the remainder of the family arrives in next hour or so prior to possibly changing code status. Arvind Valero Nov 03, 2016 18:36
[2016-11-03 22:14] LABS: MEAN CORPUSCULAR HEMOGLOBIN 32.5 PG (27.0-31.0); MEAN CORPUSCULAR HGB CONC 31.4 G/DL (32.0-36.0); MEAN CORPUSCULAR VOLUME 103 FL (80-99); MEAN PLATELET VOLUME 6.4 FL (6.5-10.1); PLATELET COUNT 355 K/UL (150-450); RED BLOOD COUNT 2.58 M/UL (4.70-6.10); RED CELL DISTRIBUTION WIDTH 14.1 % (11.6-14.8); WHITE BLOOD COUNT 19.1 K/UL (4.8-10.8)
[2016-11-03 22:18] LABS: BASOPHILS % (AUTO) 0.3 % (0.0-2.0); EOSINOPHILS % (AUTO) 0.1 % (0.0-3.0); LYMPHOCYTES % (AUTO) 4.7 % (20.0-45.0); MONOCYTES % (AUTO) 2.3 % (1.0-10.0); NEUTROPHILS % (AUTO) 92.6 % (45.0-75.0)
[2016-11-03 22:45] LABS: ALANINE AMINOTRANSFERASE 253 U/L (3-41); ALBUMIN/GLOBULIN RATIO 0.7 (1.0-2.7); ANION GAP 29 (5-15); ASPARTATE AMINO TRANSFERASE 573 U/L (5-40); CALCIUM 7.6 mg/dL (8.6-10.2); CARBON DIOXIDE 10 mEQ/L (20-30); CHLORIDE 98 mEQ/L (98-107); CREATININE 1.6 mg/dL (0.7-1.2); HEMOLYSIS 6; POTASSIUM 3.7 mEQ/L (3.4-4.9); SODIUM 137 mEQ/L (135-145); TOTAL PROTEIN 5.4 g/dL (6.6-8.7)
--- NOTE | 2016-11-03 22:48 | Consultation ---
DATE OF CONSULTATION: 11/02/2016 CARDIOLOGY CONSULTATION CONSULTING PHYSICIAN: Tushar Gil M.D. REQUESTING PHYSICIAN: Jorge Luis Williamson M.D. REASON FOR CONSULTATION: Shock. HISTORY: This is an 81-year-old Georgian male who resides at a shelter facility and has underlying dementia requiring total care. He is dependent on an NG tube for nutrition. He has been weak for several days, most notably today with shortness of breath and shortness of breath developing. Later this evening he also developed hypotension and he was transferred to this facility emergency room for further care. The primary care physician has asked my assistance as well as the airline security representative at [facility] with respect to his shock. The patient has not had any specific complaints, but as noted above he is not a reliable historian due to underlying dementia. group home chart is reviewed for available data. PAST MEDICAL HISTORY: 1. Hypertension. 2. Type 2 diabetes mellitus. 3. Cerebrovascular disease with prior cerebrovascular accident and dementia. ALLERGIES: None known. SOCIAL HISTORY: No record of smoking, alcohol, or substance abuse. MEDICATIONS: Prior to admission, reviewed and reconciled. REVIEW OF SYSTEMS: He has had weakness and poor appetite. He has had some shortness of breath. He has not had any nausea, vomiting, or complaints of his abdominal pain. No noted diarrhea or bright red blood per rectum. He has been more withdrawn today. No history of thyroid disorder. He does have diabetes, managed with oral therapy. There is no history of myocardial infarction. His blood pressure has been well controlled. PHYSICAL EXAMINATION: VITAL SIGNS: Afebrile, blood pressure 98/68, pulse 98, respirations 40, and oxygen saturation on 2 L 98%. Rectal temperature 100.2 degrees. GENERAL: Withdrawn and lethargic. Ill-appearing. Temporal wasting. NG tube in place. LUNGS: Bilateral rhonchi. HEART: Regular rhythm and rate. Normal S1 and paradoxically split S2. No new murmur. ABDOMEN: Distended, tympanic, and difficult to assess for tenderness. There is no ecchymosis noted. EXTREMITIES: Reveal no clubbing or cyanosis. No edema. No mottling of the skin. Capillary refill is diminished. DIAGNOSTIC TESTING: EKG reveals sinus rhythm with bifascicular heart block. White count 23, hemoglobin 9.7, and platelet count 428,000. Sodium 141, potassium 3.3, bicarbonate 23, BUN 43, creatinine 1.0, glucose 264, and lactic acid 4.2. Troponin negative. Albumin 2.9. Chest x-ray reveals possible free air under the diaphragm. IMPRESSION: The patient was seen and evaluated, and the case was discussed with the emergency room physician. The patient's code status is Full Code at this time. The patient's condition is critical and his prognosis is guarded. The patient likely has an abdominal sepsis with possible perforation. Lactic acidosis and shock are noted as well. PLAN: At this time, volume resuscitation. Panculture with broad- spectrum antibiotics. Pressors may need to be initiated if inadequate response to volume and intubation for airway protection has to be considered as well. The patient will have an emergent CAT scan of the abdomen and further interventions will be decided at that time. At this time he appears to be unstable for any surgical intervention, but that will have to be readdressed as soon as CAT scan findings are obtained. Tushar Gil M.D. DR: VIELKA JOB#: [id number] CC:
--- NOTE | 2016-11-03 23:08 | Progress Note ---
DATE: 11/03/2016 CARDIOLOGY PROGRESS NOTE SUBJECTIVE: The patient's condition is now critical. Prognosis is grave. The patient is in the intensive care unit. Following my evaluation last night, CAT scan of the abdomen is obtained and concern of a volvulus and ischemic bowel were noted with possible perforation. The patient has been seen by surgical and gastrointestinal consults. It was felt that surgical intervention would be definitive, however, the patient's hemodynamic instability has not permitted this at this time. The patient has had 2 code blue arrest with bradycardia. He remains on high-dose pressors at this time. OBJECTIVE: GENERAL: Orally intubated. Mechanically ventilated. LUNGS: Bilateral breath sounds. No wheezing or rales. HEART: Regular rhythm and rate. Normal S1, paradoxically split S2. ABDOMEN: Remains distended and tympanic. EXTREMITIES: With decreased capillary refill and trace edema. LABORATORY DATA: White count is 18.7 and hemoglobin 8.6. Sodium 137, potassium 3.8, BUN 45, and creatinine 1.3. Lactic acid is 6.2 and bicarbonate is 15. IMPRESSION: 1. Status post cardiopulmonary arrest. 2. Abdominal sepsis. 3. Probable ischemic and/or perforated bowel. 4. Sepsis with shock. 5. Hypokalemia. 6. Lactic acidosis. 7. Respiratory failure. PLAN: 1. Ventilator support. 2. Potassium replacement. 3. Broad-spectrum antibiotics. 4. DVT with stress ulcer prophylaxis. 5. Taper pressors as able. 6. Unstable for surgical intervention at this time. 7. Family aware of the gravity of his condition. 8. We will reassess on a regular basis but change in condition and update plan of care. Tushar Gil M.D. DR: KIRT JOB#: [id number] CC:
--- NOTE | 2016-11-03 23:18 | Consultation ---
DATE OF CONSULTATION: 11/03/2016 PULMONARY CONSULTATION REFERRING PHYSICIAN: Jorge Luis Williamson M.D. REASON FOR CONSULTATION: Respiratory failure. HISTORY OF PRESENT ILLNESS: This is an 81-year-old German male with history of dementia and recent pneumonia. Patient is a [facility] patient. Patient also has NG tube feeding. The patient was brought in by ambulance for respiratory distress and severe dyspnea. The patient also was hypotensive in the emergency room. The patient reportedly was evaluated in the emergency room. The patient was diagnosed with sigmoid volvulus and sepsis, aspiration pneumonia and admitted to ICU. The patient's chest x-ray shows atelectasis and proximal early infiltrate. Surgical evaluation is being noted and reviewed. The patient appears to be somewhat congested, on oxygen and only mild distress. He is not even to given much in the way of history at this time. The patient's planning was discussed and reviewed. The patient's x-rays were also reviewed. Labs were reviewed. residential chart was also well reviewed. PAST MEDICAL HISTORY: Notable for dementia, aspiration, chronic debility, history of prior pneumonia, history of diabetes, and history of CVA. MEDICATIONS: Reviewed. ALLERGIES: Reviewed. SOCIAL HISTORY: The patient is a [facility] patient, retired. Employed and disabled. REVIEW OF SYSTEMS: Unobtainable. PHYSICAL EXAMINATION: GENERAL: The patient is ill-appearing male appears to be in distress. VITAL SIGNS: T-max of 102.9, respiratory rate 27, blood pressure is low 84/62, repeated 71/44, heart rate 124, and saturation 92%. HEENT: Normocephalic and atraumatic. Pupils are sluggish. NECK: Supple. LUNGS: Noted for scattered rhonchi. Moderate air entry and symmetric. CARDIAC: S1 and S2. Tachycardic. The patient without murmurs, rubs, or gallops. ABDOMEN: Tympanitic, distended. No bowel sounds. EXTREMITIES: No cyanosis or clubbing. Mild edema. NEUROLOGIC: Unresponsive. The patient has skin with evidence of pressure ulcers to the heel to the sacrum. LABORATORY DATA: Laboratory rata was reviewed. White count 23, hemoglobin 9.7, hematocrit 28.9, and platelets of 428,000. INR was 1.1. Sodium 141, potassium is 3.3, BUN 43, and creatinine 1. Chest x-ray is noted with no infiltrates. The abdominal pelvic CT notable for diffuse colonic distention concerned for volvulus, NG tube in place, hiatal hernia, Yi catheter in place and compression fractures, evidence of atelectasis and pneumonia and pleural effusions. The arterial gases are Notable for 7.33, 28 and 62. IMPRESSION: 1. Respiratory failure, profound. 2. Hypoxemia. 3. Metabolic acidosis. 4. Sepsis shock. 5. Hypotension. 6. Volvulus. 7. Electrolyte imbalance. 8. Congestion 9. Acute renal failure. 10. Leukocytosis. 11. Anemia. 12. Thrombocytosis. RECOMMENDATIONS: 1. Supportive care by management. 2. Hyperventilate followup x-ray and exam, IV antibiotics. 3. Pressures as needed. 4. IV hydration. 5. Surgical evaluation. 6. The patient is very critical at present, monitor clinically for changes in intervention and further recommendations and maintain support in ICU. Dennis Lemus M.D. DR: AMINTA JOB#: [id number] CC: JAX
[2016-11-04] VITALS (60 sets, daily range): BP systolic 64–217; BP diastolic 13–108
[2016-11-04] MEDS: D5NS 1,000 ML IV SCH ×2 (04:40→14:32)
[2016-11-04] MEDS: metroNIDAZOLE 500mg 100 ML IVPB SCH ×2 (05:35→14:33)
[2016-11-04 06:16] LABS: MEAN CORPUSCULAR HEMOGLOBIN 32.8 PG (27.0-31.0); MEAN CORPUSCULAR HGB CONC 32.1 G/DL (32.0-36.0); MEAN CORPUSCULAR VOLUME 102 FL (80-99); PLATELET COUNT 390 K/UL (150-450); RED BLOOD COUNT 2.81 M/UL (4.70-6.10); RED CELL DISTRIBUTION WIDTH 15.3 % (11.6-14.8); WHITE BLOOD COUNT 19.3 K/UL (4.8-10.8)
[2016-11-04 06:37] LABS: ALANINE AMINOTRANSFERASE 277 U/L (3-41); ALBUMIN/GLOBULIN RATIO 0.6 (1.0-2.7); ANION GAP 26 (5-15); ASPARTATE AMINO TRANSFERASE 519 U/L (5-40); CALCIUM 7.3 mg/dL (8.6-10.2); CARBON DIOXIDE 11 mEQ/L (20-30); CHLORIDE 102 mEQ/L (98-107); CREATININE 1.6 mg/dL (0.7-1.2); HEMOLYSIS 9; POTASSIUM 3.7 mEQ/L (3.4-4.9); REFLEX LACTIC ACID YES OR NO YES; SODIUM 139 mEQ/L (135-145); TOTAL PROTEIN 5.2 g/dL (6.6-8.7)
[2016-11-04] MEDS: Piperacillin/Tazobactam 3.375 GM in D5W 110 ML IVPB SCH ×2 (06:43→14:33)
[2016-11-04 06:59] LABS: TROPONIN I 0.34 ng/mL (<=0.30)
--- NOTE | 2016-11-04 07:46 | General Progress Note ---
Progress Note Progress Note Surgery: Patient seen and examined at bedside this AM. obtunded, no significant responses, still on high dose pressors, labs worsening. Unfortunately his prognosis is very poor. Too unstable for surgery at first and unfortunately would not be of benefit at this time and still unstable. Arvind Valero Nov 04, 2016 07:46
--- NOTE | 2016-11-04 08:32 | Critical Care Progress Note ---
Assessment/Plan Assessment/Plan IMPRESSION: 1. Respiratory failure 2. Hypoxemia. 3. Metabolic acidosis. Acidemia 4. Sepsis shock. 5. Hypotension. 6. Volvulus. 7. Electrolyte imbalance. 8. Atelectasis 9. Acute renal failure. 10. Leukocytosis. 11. Anemia. 12. Thrombocytosis. 13. rapid Atrial fib RECOMMENDATIONS: 1. Supportive care by management. 2. Hyperventilate 3. Pressors as needed. 4. IV hydration. 5. Surgical evaluation. NPO 6. IV antibiotics 7. follow up labs 8. follow up Xray 9. monitor ABG and acid base exchange 10. critical with multiorgan disease medications/laboratory data/nursing notes/ICU care reviewed in detail note reviewed and edited care discussed with RN and RT ICU time spent 38 minutes Critical Care - Subjective Interval Events: very ill tachycardic afib poor LOC all events reviewed ROS Limited/Unobtainable: Yes Condition: critical EKG Rhythm: Atrial Fibrillation I&O: Intake and Output 11/03/16 11/04/16 19:00 07:00 Intake Total 1198.866 ml 2328.37 ml Output Total 300 ml 17 ml Balance 898.866 ml 2311.37 ml Intake Oral 0 ml 0 ml IV Total 1198.866 ml 2328.37 ml Output Urine Total 50 ml 17 ml Gastric Drainage Total 250 ml # Voids 5 20 # Bowel Movements 2 Critical Care - Objective ET-Tube: 7.5 ET Position: 23 Last 24 Hour Vital Signs Date Time Temp Pulse Resp B/P Pulse Ox O2 Delivery O2 Flow Rate FiO2 11/04/16 07:29 151 33 60 11/04/16 06:45 150 32 124/69 100 Mechanical Ventilator 60 11/04/16 06:30 147 32 138/75 100 Mechanical Ventilator 60 11/04/16 06:15 134 33 67/47 100 Mechanical Ventilator 60 11/04/16 06:00 132 33 87/58 100 Mechanical Ventilator 60 11/04/16 05:45 129 33 84/50 100 Mechanical Ventilator 60 11/04/16 05:30 121 29 66/43 100 Mechanical Ventilator 60 11/04/16 05:30 66/43 11/04/16 05:15 118 19 138/53 100 Mechanical Ventilator 60 11/04/16 05:15 118 26 60 11/04/16 05:00 132 33 217/108 100 Mechanical Ventilator 60 11/04/16 05:00 217/108 11/04/16 04:45 130 34 194/51 100 Mechanical Ventilator 60 11/04/16 04:30 132 34 100/64 100 Mechanical Ventilator 60 11/04/16 04:15 131 34 103/64 100 Mechanical Ventilator 60 11/04/16 04:00 99.0 132 34 104/65 100 Mechanical Ventilator 60 11/04/16 04:00 132 11/04/16 04:00 104/65 11/04/16 04:00 60 11/04/16 03:47 101/73 11/04/16 03:45 129 33 101/73 100 Mechanical Ventilator 60 11/04/16 03:30 128 35 60 11/04/16 03:30 131 34 91/65 100 Mechanical Ventilator 60 11/04/16 03:15 131 34 102/60 100 Mechanical Ventilator 60 11/04/16 03:00 101/66 11/04/16 02:45 130 35 101/66 100 Mechanical Ventilator 60 11/04/16 02:30 130 35 99/66 99 Mechanical Ventilator 60 11/04/16 02:15 130 34 103/63 100 Mechanical Ventilator 60 11/04/16 02:00 113/55 11/04/16 02:00 97.9 130 35 113/55 100 Mechanical Ventilator 60 11/04/16 01:45 126 35 104/66 100 Mechanical Ventilator 60 11/04/16 01:30 130 35 107/64 100 Mechanical Ventilator 60 11/04/16 01:15 129 35 105/65 100 Mechanical Ventilator 60 11/04/16 01:15 129 34 60 11/04/16 01:00 129 35 107/67 100 Mechanical Ventilator 60 11/04/16 01:00 107/67 11/04/16 00:45 129 36 105/66 100 Mechanical Ventilator 60 11/04/16 00:30 128 36 107/68 100 Mechanical Ventilator 60 11/04/16 00:15 127 36 105/69 100 Mechanical Ventilator 60 11/04/16 00:00 126 11/04/16 00:00 127 36 101/66 100 Mechanical Ventilator 60 11/04/16 00:00 101/66 11/04/16 00:00 60 11/03/16 23:45 127 36 104/66 100 Mechanical Ventilator 60 11/03/16 23:30 128 37 102/68 100 Mechanical Ventilator 60 11/03/16 23:15 128 37 102/64 100 Mechanical Ventilator 60 11/03/16 23:06 128 37 60 11/03/16 23:00 128 102/64 37 Mechanical Ventilator 99 11/03/16 22:45 128 97/64 37 Mechanical Ventilator 99 11/03/16 22:30 128 99/64 34 Mechanical Ventilator 99 11/03/16 22:15 124 90/55 34 Mechanical Ventilator 99 11/03/16 22:00 124 89/55 34 Mechanical Ventilator 99 11/03/16 21:30 124 77/55 34 Mechanical Ventilator 99 11/03/16 21:18 125 37 60 11/03/16 21:00 124 73/54 34 Mechanical Ventilator 99 11/03/16 20:45 122 125/48 34 Mechanical Ventilator 99 11/03/16 20:30 122 110/39 34 Mechanical Ventilator 99 11/03/16 20:00 120 11/03/16 20:00 120 136/17 34 Mechanical Ventilator 99 11/03/16 19:30 84 116/20 34 Mechanical Ventilator 99 11/03/16 19:30 120 35 60 11/03/16 19:00 99.0 84 42/28 29 Mechanical Ventilator 99 11/03/16 18:30 111 175/53 32 Mechanical Ventilator 99 11/03/16 18:15 111 145/40 32 Mechanical Ventilator 99 11/03/16 18:00 114 177/51 33 Mechanical Ventilator 99 11/03/16 17:50 117 33 40 11/03/16 17:45 128 0/ 28 Mechanical Ventilator 100 11/03/16 17:30 128 178/73 28 Mechanical Ventilator 100 11/03/16 17:15 134 170/45 28 Mechanical Ventilator 100 11/03/16 17:09 157/91 11/03/16 17:00 138 159/35 28 Mechanical Ventilator 100 11/03/16 16:45 142 157/91 31 Mechanical Ventilator 100 11/03/16 16:30 146 176/97 31 Mechanical Ventilator 100 11/03/16 16:15 142 176/75 14 Mechanical Ventilator 100 11/03/16 16:09 138 11/03/16 16:00 98.0 142 142/55 Mechanical Ventilator 100 11/03/16 16:00 100 11/03/16 15:45 144 120/75 Mechanical Ventilator 100 11/03/16 15:30 145 117/77 Mechanical Ventilator 100 11/03/16 15:15 145 116/74 Mechanical Ventilator 100 11/03/16 15:00 145 113/78 Mechanical Ventilator 100 11/03/16 14:45 140 114/75 Mechanical Ventilator 100 11/03/16 14:43 143 30 40 11/03/16 14:30 140 104/74 Mechanical Ventilator 100 11/03/16 14:15 144 102/72 Mechanical Ventilator 100 11/03/16 14:14 100/70 11/03/16 14:00 140 111/78 Mechanical Ventilator 100 11/03/16 13:45 141 94/67 Mechanical Ventilator 100 11/03/16 13:30 140 111/78 Mechanical Ventilator 100 11/03/16 13:00 100 11/03/16 13:00 101.4 137 119/70 Mechanical Ventilator 100 11/03/16 12:47 143 33 40 11/03/16 12:08 144 28 111/69 100 Mechanical Ventilator 100 11/03/16 12:00 144 100/70 11/03/16 11:55 111/69 11/03/16 11:46 102.9 124 27 71/44 92 Mechanical Ventilator 40 11/03/16 11:45 97/58 11/03/16 11:30 82/41 11/03/16 11:00 96/56 11/03/16 10:39 107 34 40 11/03/16 10:39 94/62 11/03/16 10:30 94/62 11/03/16 10:30 152 35 93/63 94 Mechanical Ventilator 40 11/03/16 10:00 119/82 11/03/16 09:30 104/68 11/03/16 09:14 110/66 11/03/16 09:00 99.8 149 32 96/63 95 Mechanical Ventilator 40 11/03/16 09:00 90/66 11/03/16 08:57 147 33 40 11/03/16 08:30 98/72 Labs: Laboratory Tests Test 11/03/16 11:52 11/03/16 12:55 11/03/16 13:45 11/03/16 21:20 Arterial Blood pH 7.330 (7.350-7.450) Arterial Blood Partial Pressure CO2 28.0 mmHg (35.0-45.0) L Arterial Blood Partial Pressure O2 62.0 mmHg (75.0-100.0) L Arterial Blood HCO3 14.4 mmol/L (22.0-26.0) L Arterial Blood Oxygen Saturation 90.0 % (92.0-98.0) L Arterial Blood Base Excess -10.4 Kenny Test Lactic Acid Level 6.20 mmol/L (0.66-2.22) H Sodium Level 137 mEQ/L (135-145) 137 mEQ/L (135-145) Potassium Level 2.8 mEQ/L (3.4-4.9) L 3.7 mEQ/L (3.4-4.9) Chloride Level 99 mEQ/L (98-107) 98 mEQ/L (98-107) Carbon Dioxide Level 15 mEQ/L (20-30) L 10 mEQ/L (20-30) L Anion Gap 23 (5-15) H 29 (5-15) H Blood Urea Nitrogen 45 mg/dL (7-23) H 49 mg/dL (7-23) H Creatinine 1.3 mg/dL (0.7-1.2) H 1.6 mg/dL (0.7-1.2) H Estimat Glomerular Filtration Rate mL/min (>60) mL/min (>60) Glucose Level 296 mg/dL (74-106) H 382 mg/dL (74-106) H Calcium Level 7.2 mg/dL (8.6-10.2) L 7.6 mg/dL (8.6-10.2) L White Blood Count 19.1 K/UL (4.8-10.8) H Red Blood Count 2.58 M/UL (4.70-6.10) L Hemoglobin 8.4 G/DL (14.2-18.0) L Hematocrit 26.6 % (42.0-52.0) L Mean Corpuscular Volume 103 FL (80-99) H Mean Corpuscular Hemoglobin 32.5 PG (27.0-31.0) H Mean Corpuscular Hemoglobin Concent 31.4 G/DL (32.0-36.0) L Red Cell Distribution Width 14.1 % (11.6-14.8) Platelet Count 355 K/UL (150-450) Mean Platelet Volume 6.4 FL (6.5-10.1) L Neutrophils (%) (Auto) 92.6 % (45.0-75.0) H Lymphocytes (%) (Auto) 4.7 % (20.0-45.0) L Monocytes (%) (Auto) 2.3 % (1.0-10.0) Eosinophils (%) (Auto) 0.1 % (0.0-3.0) Basophils (%) (Auto) 0.3 % (0.0-2.0) Total Bilirubin 0.5 mg/dL (0.0-1.2) Aspartate Amino Transf (AST/SGOT) 573 U/L (5-40) H Alanine Aminotransferase (ALT/SGPT) 253 U/L (3-41) H Alkaline Phosphatase 59 U/L (40-129) Total Protein 5.4 g/dL (6.6-8.7) L Albumin 2.3 g/dL (3.5-5.2) L Globulin 3.1 g/dL Albumin/Globulin Ratio 0.7 (1.0-2.7) L Test 11/04/16 04:00 White Blood Count 19.3 K/UL (4.8-10.8) H Red Blood Count 2.81 M/UL (4.70-6.10) L Hemoglobin 9.2 G/DL (14.2-18.0) L Hematocrit 28.7 % (42.0-52.0) L Mean Corpuscular Volume 102 FL (80-99) H Mean Corpuscular Hemoglobin 32.8 PG (27.0-31.0) H Mean Corpuscular Hemoglobin Concent 32.1 G/DL (32.0-36.0) Red Cell Distribution Width 15.3 % (11.6-14.8) H Platelet Count 390 K/UL (150-450) Mean Platelet Volume 7.0 FL (6.5-10.1) Neutrophils (%) (Auto) % (45.0-75.0) Lymphocytes (%) (Auto) % (20.0-45.0) Monocytes (%) (Auto) % (1.0-10.0) Eosinophils (%) (Auto) % (0.0-3.0) Basophils (%) (Auto) % (0.0-2.0) Neutrophils % (Manual) Pending Lymphocytes % (Manual) Pending Platelet Estimate Pending Platelet Morphology Pending Sodium Level 139 mEQ/L (135-145) Potassium Level 3.7 mEQ/L (3.4-4.9) Chloride Level 102 mEQ/L (98-107) Carbon Dioxide Level 11 mEQ/L (20-30) L Anion Gap 26 (5-15) H Blood Urea Nitrogen 49 mg/dL (7-23) H Creatinine 1.6 mg/dL (0.7-1.2) H Estimat Glomerular Filtration Rate mL/min (>60) Glucose Level 476 mg/dL (74-106) H Lactic Acid Level 7.30 mmol/L (0.66-2.22) H Calcium Level 7.3 mg/dL (8.6-10.2) L Total Bilirubin 0.6 mg/dL (0.0-1.2) Aspartate Amino Transf (AST/SGOT) 519 U/L (5-40) H Alanine Aminotransferase (ALT/SGPT) 277 U/L (3-41) H Alkaline Phosphatase 58 U/L (40-129) Troponin I 0.34 ng/mL (<=0.30) *H Total Protein 5.2 g/dL (6.6-8.7) L Albumin 2.1 g/dL (3.5-5.2) L Globulin 3.1 g/dL Albumin/Globulin Ratio 0.6 (1.0-2.7) L Objective: GENERAL: The patient is ill-appearing male obtunded HEENT: Normocephalic and atraumatic. Pupils are sluggish. NECK: Supple. LUNGS: Noted for scattered rhonchi. Moderate air entry and symmetric. orally intubated CARDIAC: S1 and S2. Tachycardic and irregular. The patient without murmurs, rubs, or gallops. ABDOMEN: Tympanitic, distended. No bowel sounds. NGT EXTREMITIES: No cyanosis or clubbing. Mild edema. NEUROLOGIC: Unresponsive. The patient has skin with evidence of pressure ulcers to the heel to the sacrum. reviewed and edited Micro: Microbiology Date/Time Source Procedure Growth Status 11/02/16 22:53 Blood Blood Culture - Preliminary NO GROWTH AFTER 24 HOURS Resulted 11/02/16 22:53 Blood Blood Culture - Preliminary NO GROWTH AFTER 24 HOURS Resulted Accucheck: 272 RAHEEM MONAHAN Nov 04, 2016 08:32
[2016-11-04 08:40] LABS: BAND NEUTROPHILS % (MANUAL) 33 % (0-8); LYMPHOCYTES % (MANUAL) 2 % (20-45); METAMYELOCYTES % 4 % (0-0); NEUTROPHILS % (MANUAL) 57 % (45-75); TOTAL CELLS COUNTED 100
[2016-11-04 08:41] LABS: BASOPHILS % (MANUAL) 0 % (0-2); EOSINOPHILS % (MANUAL) 0 % (0-3); PLATELET ESTIMATE ADEQUATE
[2016-11-04 08:42] LABS: ANISOCYTOSIS 1+; MACROCYTES 1+; PLATELET MORPHOLOGY NORMAL
[2016-11-04] MEDS: Pantoprazole Inj IVP SCH (08:43)
[2016-11-04] MEDS: Heparin 5000 units/ml inj SUBQ SCH (08:44)
[2016-11-04] MEDS ORDERED: Pantoprazole Inj IVP SCH (09:00)
[2016-11-04 09:21] LABS: OTHERS PATHOLOGIST COMMENT
--- NOTE | 2016-11-04 09:23 | General Progress Note ---
Assessment/Plan Problem List: (1) Shock ICD Codes: R57.9 - Shock, unspecified SNOMED: 20943378 (2) Respiratory failure ICD Codes: J96.90 - Respiratory failure, unspecified, unspecified whether with hypoxia or hypercapnia SNOMED: 323506930 (3) Sigmoid volvulus ICD Codes: K56.2 - Volvulus SNOMED: 438970117 (4) Aspiration pneumonia ICD Codes: J69.0 - Pneumonitis due to inhalation of food and vomit SNOMED: 831350131 Qualifiers: Qualified Codes: J69.0 - Pneumonitis due to inhalation of food and vomit (5) Anemia, chronic disease ICD Codes: D63.8 - Anemia in other chronic diseases classified elsewhere SNOMED: 015027886 (6) Hyperglycemia due to type 2 diabetes mellitus ICD Codes: E11.65 - Type 2 diabetes mellitus with hyperglycemia SNOMED: 429761867584173 Qualifiers: Qualified Codes: E11.65 - Type 2 diabetes mellitus with hyperglycemia (7) Sepsis ICD Codes: A41.9 - Sepsis, unspecified organism SNOMED: 86620964 Qualifiers: Qualified Codes: A41.9 - Sepsis, unspecified organism Status: deteriorating Assessment/Plan vent support iv abx pressors follow cultures ivf d/w son janee. updated on poc. poor prognosis son is aware dnr reaffirmed. full code for now Subjective ROS Limited/Unobtainable: Yes Constitutional: Reports: malaise, weakness HEENT: Reports: no symptoms Cardiovascular: Reports: no symptoms Respiratory: Reports: shortness of breath Gastrointestinal/Abdominal: Reports: abdomen distended Genitourinary: Reports: no symptoms Neurologic/Psychiatric: Reports: pre-existing deficit Endocrine: Reports: no symptoms Hematologic/Lymphatic: Reports: no symptoms Allergies: Coded Allergies: No Known Allergies (Unverified , 11/02/16) All Systems: reviewed and negative except above Subjective remains on the vent. max pressor support. tachycardic. +sob. BP slightly better. Objective Last 24 Hour Vital Signs Date Time Temp Pulse Resp B/P Pulse Ox O2 Delivery O2 Flow Rate FiO2 11/04/16 07:29 151 33 60 11/04/16 06:45 150 32 124/69 100 Mechanical Ventilator 60 11/04/16 06:30 147 32 138/75 100 Mechanical Ventilator 60 11/04/16 06:15 134 33 67/47 100 Mechanical Ventilator 60 11/04/16 06:00 132 33 87/58 100 Mechanical Ventilator 60 11/04/16 05:45 129 33 84/50 100 Mechanical Ventilator 60 11/04/16 05:30 121 29 66/43 100 Mechanical Ventilator 60 11/04/16 05:30 66/43 11/04/16 05:15 118 19 138/53 100 Mechanical Ventilator 60 11/04/16 05:15 118 26 60 11/04/16 05:00 132 33 217/108 100 Mechanical Ventilator 60 11/04/16 05:00 217/108 11/04/16 04:45 130 34 194/51 100 Mechanical Ventilator 60 11/04/16 04:30 132 34 100/64 100 Mechanical Ventilator 60 11/04/16 04:15 131 34 103/64 100 Mechanical Ventilator 60 11/04/16 04:00 99.0 132 34 104/65 100 Mechanical Ventilator 60 11/04/16 04:00 132 11/04/16 04:00 104/65 11/04/16 04:00 60 11/04/16 03:47 101/73 11/04/16 03:45 129 33 101/73 100 Mechanical Ventilator 60 11/04/16 03:30 128 35 60 11/04/16 03:30 131 34 91/65 100 Mechanical Ventilator 60 11/04/16 03:15 131 34 102/60 100 Mechanical Ventilator 60 11/04/16 03:00 101/66 11/04/16 02:45 130 35 101/66 100 Mechanical Ventilator 60 11/04/16 02:30 130 35 99/66 99 Mechanical Ventilator 60 11/04/16 02:15 130 34 103/63 100 Mechanical Ventilator 60 11/04/16 02:00 113/55 11/04/16 02:00 97.9 130 35 113/55 100 Mechanical Ventilator 60 11/04/16 01:45 126 35 104/66 100 Mechanical Ventilator 60 11/04/16 01:30 130 35 107/64 100 Mechanical Ventilator 60 11/04/16 01:15 129 35 105/65 100 Mechanical Ventilator 60 11/04/16 01:15 129 34 60 11/04/16 01:00 129 35 107/67 100 Mechanical Ventilator 60 11/04/16 01:00 107/67 11/04/16 00:45 129 36 105/66 100 Mechanical Ventilator 60 11/04/16 00:30 128 36 107/68 100 Mechanical Ventilator 60 11/04/16 00:15 127 36 105/69 100 Mechanical Ventilator 60 11/04/16 00:00 126 11/04/16 00:00 127 36 101/66 100 Mechanical Ventilator 60 11/04/16 00:00 101/66 11/04/16 00:00 60 11/03/16 23:45 127 36 104/66 100 Mechanical Ventilator 60 11/03/16 23:30 128 37 102/68 100 Mechanical Ventilator 60 11/03/16 23:15 128 37 102/64 100 Mechanical Ventilator 60 11/03/16 23:06 128 37 60 11/03/16 23:00 128 102/64 37 Mechanical Ventilator 99 11/03/16 22:45 128 97/64 37 Mechanical Ventilator 99 11/03/16 22:30 128 99/64 34 Mechanical Ventilator 99 11/03/16 22:15 124 90/55 34 Mechanical Ventilator 99 11/03/16 22:00 124 89/55 34 Mechanical Ventilator 99 11/03/16 21:30 124 77/55 34 Mechanical Ventilator 99 11/03/16 21:18 125 37 60 11/03/16 21:00 124 73/54 34 Mechanical Ventilator 99 11/03/16 20:45 122 125/48 34 Mechanical Ventilator 99 11/03/16 20:30 122 110/39 34 Mechanical Ventilator 99 11/03/16 20:00 120 11/03/16 20:00 120 136/17 34 Mechanical Ventilator 99 11/03/16 19:30 84 116/20 34 Mechanical Ventilator 99 11/03/16 19:30 120 35 60 11/03/16 19:00 99.0 84 42/28 29 Mechanical Ventilator 99 11/03/16 18:30 111 175/53 32 Mechanical Ventilator 99 11/03/16 18:15 111 145/40 32 Mechanical Ventilator 99 11/03/16 18:00 114 177/51 33 Mechanical Ventilator 99 11/03/16 17:50 117 33 40 11/03/16 17:45 128 0/ 28 Mechanical Ventilator 100 11/03/16 17:30 128 178/73 28 Mechanical Ventilator 100 11/03/16 17:15 134 170/45 28 Mechanical Ventilator 100 11/03/16 17:09 157/91 11/03/16 17:00 138 159/35 28 Mechanical Ventilator 100 11/03/16 16:45 142 157/91 31 Mechanical Ventilator 100 11/03/16 16:30 146 176/97 31 Mechanical Ventilator 100 11/03/16 16:15 142 176/75 14 Mechanical Ventilator 100 11/03/16 16:09 138 11/03/16 16:00 98.0 142 142/55 Mechanical Ventilator 100 11/03/16 16:00 100 11/03/16 15:45 144 120/75 Mechanical Ventilator 100 11/03/16 15:30 145 117/77 Mechanical Ventilator 100 11/03/16 15:15 145 116/74 Mechanical Ventilator 100 11/03/16 15:00 145 113/78 Mechanical Ventilator 100 11/03/16 14:45 140 114/75 Mechanical Ventilator 100 11/03/16 14:43 143 30 40 11/03/16 14:30 140 104/74 Mechanical Ventilator 100 11/03/16 14:15 144 102/72 Mechanical Ventilator 100 11/03/16 14:14 100/70 11/03/16 14:00 140 111/78 Mechanical Ventilator 100 11/03/16 13:45 141 94/67 Mechanical Ventilator 100 11/03/16 13:30 140 111/78 Mechanical Ventilator 100 11/03/16 13:00 100 11/03/16 13:00 101.4 137 119/70 Mechanical Ventilator 100 11/03/16 12:47 143 33 40 11/03/16 12:08 144 28 111/69 100 Mechanical Ventilator 100 11/03/16 12:00 144 100/70 11/03/16 11:55 111/69 11/03/16 11:46 102.9 124 27 71/44 92 Mechanical Ventilator 40 11/03/16 11:45 97/58 11/03/16 11:30 82/41 11/03/16 11:00 96/56 11/03/16 10:39 107 34 40 11/03/16 10:39 94/62 11/03/16 10:30 94/62 11/03/16 10:30 152 35 93/63 94 Mechanical Ventilator 40 11/03/16 10:00 119/82 11/03/16 09:30 104/68 11/03/16 09:14 110/66 Intake and Output 11/03/16 11/04/16 19:00 07:00 Intake Total 1198.866 ml 2328.37 ml Output Total 300 ml 17 ml Balance 898.866 ml 2311.37 ml Intake Oral 0 ml 0 ml IV Total 1198.866 ml 2328.37 ml Output Urine Total 50 ml 17 ml Gastric Drainage Total 250 ml # Voids 5 20 # Bowel Movements 2 Laboratory Tests 11/03/16 11:52: Arterial Blood pH 7.330L, Arterial Blood Partial Pressure CO2 28.0L, Arterial Blood Partial Pressure O2 62.0L, Arterial Blood HCO3 14.4L, Arterial Blood Oxygen Saturation 90.0L, Arterial Blood Base Excess -10.4, Kenny Test 11/03/16 12:55: Lactic Acid Level 6.20H 11/03/16 13:45: Sodium Level 137, Potassium Level 2.8L, Chloride Level 99, Carbon Dioxide Level 15L, Anion Gap 23H, Blood Urea Nitrogen 45H, Creatinine 1.3H, Estimat Glomerular Filtration Rate , Glucose Level 296H, Calcium Level 7.2L 11/03/16 21:20: Sodium Level 137, Potassium Level 3.7, Chloride Level 98, Carbon Dioxide Level 10L, Anion Gap 29H, Blood Urea Nitrogen 49H, Creatinine 1.6H, Estimat Glomerular Filtration Rate , Glucose Level 382H, Calcium Level 7.6L, White Blood Count 19.1H, Red Blood Count 2.58L, Hemoglobin 8.4L, Hematocrit 26.6L, Mean Corpuscular Volume 103H, Mean Corpuscular Hemoglobin 32.5H, Mean Corpuscular Hemoglobin Concent 31.4L, Red Cell Distribution Width 14.1, Platelet Count 355, Mean Platelet Volume 6.4L, Neutrophils (%) (Auto) 92.6H, Lymphocytes (%) (Auto) 4.7L, Monocytes (%) (Auto) 2.3, Eosinophils (%) (Auto) 0.1, Basophils (%) (Auto) 0.3, Total Bilirubin 0.5, Aspartate Amino Transf (AST/ SGOT) 573H, Alanine Aminotransferase (ALT/SGPT) 253H, Alkaline Phosphatase 59, Total Protein 5.4L, Albumin 2.3L, Globulin 3.1, Albumin/Globulin Ratio 0.7L 11/04/16 04:00: White Blood Count 19.3H, Red Blood Count 2.81L, Hemoglobin 9.2L, Hematocrit 28.7L, Mean Corpuscular Volume 102H, Mean Corpuscular Hemoglobin 32.8H, Mean Corpuscular Hemoglobin Concent 32.1, Red Cell Distribution Width 15.3H, Platelet Count 390, Mean Platelet Volume 7.0, Neutrophils (%) (Auto) , Lymphocytes (%) (Auto) , Monocytes (%) (Auto) , Eosinophils (%) (Auto) , Basophils (%) (Auto) , Differential Total Cells Counted 100, Neutrophils % ( Manual) 57, Lymphocytes % (Manual) 2L, Monocytes % (Manual) 4, Eosinophils % ( Manual) 0, Basophils % (Manual) 0, Metamyelocytes % 4H, Band Neutrophils 33H, Platelet Estimate Adequate, Platelet Morphology Normal, Anisocytosis 1+, Macrocytosis 1+, Sodium Level 139, Potassium Level 3.7, Chloride Level 102, Carbon Dioxide Level 11L, Anion Gap 26H, Blood Urea Nitrogen 49H, Creatinine 1.6H, Estimat Glomerular Filtration Rate , Glucose Level 476H, Lactic Acid Level 7.30H, Calcium Level 7.3L, Total Bilirubin 0.6, Aspartate Amino Transf ( AST/SGOT) 519H, Alanine Aminotransferase (ALT/SGPT) 277H, Alkaline Phosphatase 58, Troponin I 0.34*H, Total Protein 5.2L, Albumin 2.1L, Globulin 3.1, Albumin/ Globulin Ratio 0.6L Height (Feet): 5 Height (Inches): 7.00 Weight (Pounds): 170 General Appearance: WD/WN, lethargic Neck: supple Cardiovascular: tachycardia Respiratory/Chest: lungs clear Abdomen: hypoactive bowel sounds, distended Edema: mild edema Neurologic: unresponsive Skin: mottled ALFIE AMBROCIO Nov 04, 2016 09:23
[2016-11-04] MEDS: Phenylephrine 50 MG in D5W 245 ML IV SCH (12:00)
--- NOTE | 2016-11-04 13:28 | Consultation ---
DATE OF CONSULTATION: 11/03/2016 NOTE: "POOR AUDIO QUALITY" CONSULTING PHYSICIAN: Vanesa Lentz M.D. REFERRING PHYSICIAN: Tushar Gil M.D. CHIEF COMPLAINT: I was asked to see this patient by Dr. Tushar Gil for evaluation of abdominal distention. HISTORY OF PRESENT ILLNESS: The patient is an 81-year-old man with history of Parkinson disease, diabetes, and hypertension, who came to the hospital with complained of shortness of breath. The patient was noted to be very anemic and also had some lactic acidosis. In addition, however, he was noted to have abdominal distention and therefore, CT scan was ordered which showed massively dilated colon with possible volvulus. Because of rapidly deteriorating clinical status, he was transferred to ICU where he was intubated. I was called around midday to assess of this patient and then discussed the matter with the nurse and then subsequently with the family as well as the surgical staff. It appears the patient has developed sigmoid volvulus based on the CT and the laboratory criteria; however, the management is difficult since he appeared to be in a state of shock on high-dose pressors with severe tachycardia. The two options that we discussed were colonoscopy in an attempt to reduce the sigmoid volvulus versus surgical intervention. Given the lactic acidosis, septic shock, and leukocytosis, it appears that the segment of the colon involved will and the colonoscopy would carry a reportedly high risk for perforation. In that case, surgery would be better option although it was made very clear at that time that both options carry substantial risk of morbidity and mortality. The family was informed of the findings and plans were made to stabilize the patient and perhaps take him to the operative suite late in the afternoon; however, the patient apparently had Code Blue arrest in the after hours and is now in a severely compromised status which makes even surgery not feasible. The patient's family is in the ICU and are aware of the patient's terminal status and all of their questions were answered and all of the concerns were addressed. They understand that at this point colonoscopy or surgery would no longer be the options for this patient based on his moribund status. PAST MEDICAL HISTORY: History of diabetes, hypertension, Parkinson disease. FAMILY HISTORY: Noncontributory . SOCIAL HISTORY: The patient has had no history of smoking or drinking. REVIEW OF SYSTEMS: Unobtainable. ALLERGIES: None. MEDICATIONS: See chart list for details. PHYSICAL EXAMINATION: General: 04:06 man on a ventilator in the ICU cool poorly perfused feet, on high-dose pressors and tachycardia on the monitor. HEENT: Normocephalic and atraumatic. The patient is intubated. NECK: Appeared supple. CHEST: Revealed bilateral rhonchi. CARDIOVASCULAR: Tachycardic heart rate. ABDOMEN: Markedly distended and somewhat firm. EXTREMITIES: Revealed cool lower extremity with some degree of mottling and discoloration of toe. LABORATORY DATA: Noted. Imaging studies were noted. ASSESSMENT: This patient has presented with sigmoid volvulus with intestinal ischemia . At this point, he just had Code Blue arrest. He has been remaining hypotensive in state of shock, on high-dose pressors, tachycardia, and very unstable state. He is not a candidate for the colonoscopic intervention and per surgical staff, he currently is also not a candidate for surgical intervention. As such, he is moribund and not expected to live overnight. This has been all explained to the patient's family. They understand . They are calling the patient's relatives to fly and see him before he dies. RECOMMENDATIONS: 1. Supportive care. 2. The family communication. 3. Continue nasogastric suction. Vanesa Lentz M.D. DR: Julieta JOB#: [id number] CC:
[2016-11-04] MEDS: Vancomycin 1250mg/D5W 275ml IVPB SCH ×2 (14:32)
[2016-11-04] MEDS ORDERED: Sodium Bicarbonate 8.4% 50ml Carp ONE ×2 (15:35→18:17)
[2016-11-04] MEDS ORDERED: EPINEPHrine 1mg/10ml carp IV ONE ×2 (15:35→18:17)
[2016-11-04] MEDS ORDERED: D5 1/2NS 1000ml IV ONE (15:35)
[2016-11-04] MEDS ORDERED: Tubing IV Secondary IV ONE (17:43)
[2016-11-04] MEDS ORDERED: D5NS 1000ml IV ONE (17:43)
[2016-11-04] MEDS ORDERED: NS 275ml ONE (17:43)
--- NOTE | 2016-11-05 03:08 | Progress Note ---
DATE: 11/04/2016 CARDIOLOGY PROGRESS NOTE: SUBJECTIVE: The patient's condition remains critical. Prognosis is grave. The patient remains in the intensive care unit. He is orally intubated. Several code blue arrests were noted over the past 24 hours. The patient is on pressor support. OBJECTIVE: VITAL SIGNS: Blood pressure is 67/47, pulse rate 134, respiratory rate 33, afebrile, and temperature maximum at 101.4 degrees. GENERAL: Orally intubated, sedated, and unresponsive. Poor peripheral perfusion. LUNGS: Bilateral breath sounds with few rhonchi. HEART: Regular rhythm. Rapid rate. Normal S1 and S2. ABDOMEN: Soft, but distended with no bowel sounds. EXTREMITIES: With trace edema. LABORATORY DATA: White count is 19.3 and hemoglobin 9.2. Sodium is 139, potassium 3.7, bicarbonate 11, BUN 49, and creatinine 1.6. Lactic acid is 7.3 and glucose 176. Liver function tests are elevated in the 500 range. Troponin is 0.34. Albumin is 2.1. IMPRESSION: 1. Sigmoid volvulus. 2. Intestinal ischemia. 3. Abdominal sepsis. 4. Status post cardiopulmonary arrest. 5. Septic shock. 6. Secondary sinus tachycardia. 7. Acute myocardial ischemia. 8. Multiorgan system failure. 9. Lactic acidosis. PLAN: 1. The patient is unstable for surgery. 2. Broad-spectrum antibiotics. 3. Volume support. 4. Pressors as needed. 5. Ventilator support. 6. Stress ulcer and deep venous thrombosis prophylaxis. 7. If stabilizes, surgical intervention will be reconsidered, however at this time, he will not tolerate any intervention. Family is aware of gravity of condition. Tushar Gil M.D. DR: Ruby JOB#: [id number] CC:
--- NOTE | 2016-11-05 03:21 | Emergency Room Report ---
Physical Exam Code Blue was called. Patient with volvulus, too ill to go to surgery. Post one Code Blue. On maximal pressors. Patient with loss of pulses. CPR being performed. Last 24 Hour Vital Signs Date Time Temp Pulse Resp B/P Pulse Ox O2 Delivery O2 Flow Rate FiO2 11/04/16 15:07 130 23 60 11/04/16 15:00 132 28 114/46 100 Mechanical Ventilator 60 11/04/16 14:45 138 28 114/46 100 Mechanical Ventilator 60 11/04/16 14:34 100/49 11/04/16 14:30 138 28 126/67 100 Mechanical Ventilator 60 11/04/16 14:15 137 28 100/49 100 Mechanical Ventilator 60 11/04/16 14:00 135 28 109/80 100 Mechanical Ventilator 60 11/04/16 13:45 130 28 96/32 100 Mechanical Ventilator 60 11/04/16 13:30 121 28 96/75 100 Mechanical Ventilator 60 11/04/16 13:22 87 17 60 11/04/16 13:15 132 28 173/27 100 Mechanical Ventilator 60 11/04/16 13:00 132 28 179/50 100 Mechanical Ventilator 60 11/04/16 12:45 146 31 186/53 100 Mechanical Ventilator 60 11/04/16 12:30 147 31 94/52 100 Mechanical Ventilator 60 11/04/16 12:15 147 31 64/21 100 Mechanical Ventilator 60 11/04/16 12:00 100.2 147 31 91/61 100 Mechanical Ventilator 60 11/04/16 12:00 146 11/04/16 11:45 147 31 100/61 100 Mechanical Ventilator 60 11/04/16 11:30 147 31 94/61 100 Mechanical Ventilator 60 11/04/16 11:15 147 31 64/21 100 Mechanical Ventilator 60 11/04/16 11:00 146 31 83/13 100 Mechanical Ventilator 60 11/04/16 10:56 147 30 60 11/04/16 10:45 146 31 94/60 100 Mechanical Ventilator 60 11/04/16 10:30 145 33 92/64 100 Mechanical Ventilator 60 11/04/16 10:15 143 32 89/60 100 Mechanical Ventilator 60 11/04/16 10:00 144 32 91/56 100 Mechanical Ventilator 60 11/04/16 09:45 146 32 97/59 100 Mechanical Ventilator 60 11/04/16 09:30 147 32 100/58 100 Mechanical Ventilator 60 11/04/16 09:22 148 32 60 11/04/16 09:15 147 32 101/56 100 Mechanical Ventilator 60 11/04/16 09:00 150 32 100/67 100 Mechanical Ventilator 60 11/04/16 08:45 146 32 102/84 100 Mechanical Ventilator 60 11/04/16 08:30 149 32 106/60 100 Mechanical Ventilator 60 11/04/16 08:15 149 32 104/58 100 Mechanical Ventilator 60 11/04/16 08:00 100.3 149 33 102/62 100 Mechanical Ventilator 60 11/04/16 08:00 150 11/04/16 08:00 50 11/04/16 07:45 150 32 105/67 100 Mechanical Ventilator 60 11/04/16 07:30 149 32 106/64 100 Mechanical Ventilator 60 11/04/16 07:29 151 33 60 11/04/16 07:15 151 33 116/68 100 Mechanical Ventilator 60 11/04/16 07:00 151 32 113/69 100 Mechanical Ventilator 60 11/04/16 06:45 150 32 124/69 100 Mechanical Ventilator 60 11/04/16 06:30 147 32 138/75 100 Mechanical Ventilator 60 11/04/16 06:15 134 33 67/47 100 Mechanical Ventilator 60 11/04/16 06:00 132 33 87/58 100 Mechanical Ventilator 60 11/04/16 05:45 129 33 84/50 100 Mechanical Ventilator 60 11/04/16 05:30 121 29 66/43 100 Mechanical Ventilator 60 11/04/16 05:30 66/43 11/04/16 05:15 118 19 138/53 100 Mechanical Ventilator 60 11/04/16 05:15 118 26 60 11/04/16 05:00 132 33 217/108 100 Mechanical Ventilator 60 11/04/16 05:00 217/108 11/04/16 04:45 130 34 194/51 100 Mechanical Ventilator 60 11/04/16 04:30 132 34 100/64 100 Mechanical Ventilator 60 11/04/16 04:15 131 34 103/64 100 Mechanical Ventilator 60 11/04/16 04:00 99.0 132 34 104/65 100 Mechanical Ventilator 60 11/04/16 04:00 132 11/04/16 04:00 104/65 11/04/16 04:00 60 11/04/16 03:47 101/73 11/04/16 03:45 129 33 101/73 100 Mechanical Ventilator 60 11/04/16 03:30 128 35 60 11/04/16 03:30 131 34 91/65 100 Mechanical Ventilator 60 11/04/16 03:15 131 34 102/60 100 Mechanical Ventilator 60 Sp02 EP Interpretation: reviewed, abnormal - for FIO2 as interpreted by me General Appearance: other - unresponsive Head: normocephalic Eyes: bilateral eye conjunctivae pale ENT: moist mucus membranes, other - ET tube Neck: other - flaccid Respiratory: other - Bs bilat Cardiovascular #1: other - no pulses or heart sounds Gastrointestinal: abnormal bowel sounds - abscent, distended Genitourinary: other - shaver Musculoskeletal: other - no deform Neurologic: other - unresponsive Psychiatric: other - comatose Skin: pallor, mottled CPR/Code Blue CPR/Code Blue Narrative Code called 15:30. CPR supervised by me. Asystole. Epi X2. Discussion with son who requests stop resuscitation attempts. Code called and patient pronounced at 15:30. Medical Decision Making Diagnostic Impression: Primary Impression: Sigmoid volvulus Additional Impressions: Aspiration pneumonia Proteinuria Hyperglycemia due to type 2 diabetes mellitus Sepsis UTI (urinary tract infection) Anemia, chronic disease Dehydration Cardiopulmonary arrest ER Course Patient with sepsis from volvulus. Asystolic code. See notes. Patient pronounced. Son present. No pulses, respirations. Disposition: Condition: Referrals: NON PHYSICIAN (PCP) Tushar Wilson M.D. Nov 05, 2016 03:21
--- NOTE | 2016-11-05 10:57 | Cardiology Report ---
APPROVED REPORT EKG Measurement Heart [id number] Normal sinus rhythm Right bundle branch block Left anterior fascicular block Bifascicular block Abnormal ECG
--- NOTE | 2016-11-05 18:51 | Discharge Summary ---
Discharge Summary Hospital Course Date of Admission Nov 02, 2016 at 23:55 Date of Discharge Nov 04, 2016 at 15:36 Admitting Diagnosis sepsis ELOISE Walker is a 81 year old male who was admitted on Nov 02, 2016 at 23:55 for Sepsis Hospital Course [id number] Discharge Discharge Disposition Patient Discharge Diagnoses: Reba Cain NP Nov 05, 2016 18:51
--- NOTE | 2016-11-06 01:28 | Discharge Summary 2 SIG ---
DATE OF ADMISSION: 11/02/2016 DATE OF DISCHARGE: 11/04/2016 SUMMARY CONSULTANTS: 1. Vanesa Lentz M.D. 2. Jorge Luis Williamson M.D. 3. Dennis Lemus M.D. 4. Andrew Barnes M.D. BRIEF COURSE: The patient is an 81-year-old male with history of diabetes, hypertension, and Parkinson disease. He was transferred to [place] ED for complaints of shortness of breath. He was previously hospitalized several weeks ago in an outside hospital for aspiration pneumonia and had an NG tube continued at the nursing facility. He was noted to have shortness of breath and on evaluation at ED, had elevated lactic acid. Abdomen was noted to be distended. CAT scan showed massively dilated colon with volvulus. He became progressively hypotensive and was orally intubated. He was placed on IV pressors. He was followed by Gastroenterology and General surgery, unable to undergo any procedure due to the patient's hemodynamic instability. He was given broad-spectrum antibiotics and volume support. Family was made aware of gravity of condition. The patient was Full Code. He went into cardiorespiratory arrest, Code Blue was called and the patient eventually . FINAL DIAGNOSES: 1. Cardiorespiratory arrest. 2. Acute respiratory failure. 3. Sigmoid volvulus. 4. Intestinal ischemia. 5. Sepsis. 6. Septic shock. 7. Secondary sinus tachycardia. 8. Acute myocardial ischemia. 9. Multiorgan system failure. 10. Lactic acidosis. 11. Aspiration pneumonia. 12. Hyperglycemia due to diabetes mellitus. 13. Acute renal failure. 14. Thrombocytosis. 15. Bilateral heel deep tissue injury and sacral decubitus ulcer present on admission. Tushar Gil M.D. I have been assigned to dictate discharge summary on this account and I was not involved in the patient's management. Reba Cain N.P. DR: PIYUSH JOB#: [id number] CC: JAX
--- NOTE | 2016-11-06 22:53 | Emergency Room Report ---
History of Present Illness General Chief Complaint: Dyspnea/Respdistress Source: Medical Record Present Illness Allergies: Coded Allergies: No Known Allergies (Unverified , 11/02/16) Patient History Past Surgical History: none Pertinent Family History: none Social History: Denies: alcohol use, drug use, smoking Immunizations: UTD Reviewed Nursing Documentation: PMH: Agreed, PSxH: Agreed Nursing Documentation-PMH Past Medical History: No History, Except For Hx Cardiac Problems: Yes Hx Hypertension: Yes Hx Pacemaker: No - PNA Hx Diabetes: Yes Hx Cancer: No Hx Gastrointestinal Problems: Yes Hx Dialysis: No Hx Neurological Problems: Yes Hx Cerebrovascular Accident: Yes Hx Parkinson's Disease: Yes Hx Dizziness: Yes Physical Exam Vital Signs Date Time Temp Pulse Resp B/P Pulse Ox O2 Delivery O2 Flow Rate FiO2 11/02/16 21:14 97.9 98 40 98/68 98 Nasal Cannula 2.0 11/03/16 01:47 100 Procedures Critical Care Time Critical Care Time i. I feel this is a highly complex case requiring extensive working including EKG/Rhythm strip, Xray/CT/US, Blood/urine lab work, repeat exams while in ED, and administration of strong opiates/narcotics for pain control, admission to hospital or close patient follow up. Total time: 30 min bedside evaluation and treatment excludes procedures (EKG). Reason for critical care: Cardiac arrest Possible complications: hypotension, hypertension, SC, shock, arrhythmias, metabolic acidosis, end organ damage, respiratory failure. Interventions: Compression, ACLS medications, Accu-Chek, calcium, bicarbonate Course: Patient lost pulses. Initial rhythm asystole. CPR in progress. Given calcium and by car. Given epinephrine. Patient regained pulses Consultations: nursing staff, EMS, family Performed by: Dr Robertson Tolerated well condition = critical j. because of unstable vital signs this patient had a condition that could potentially threaten life or limb. I feel this is a critical patient who required my full attention while patient was considered critical. Total Critical Care Time excluding procedures was greater than 35 minutes CPR/Code Blue CPR/Code Blue Narrative Initial rhythm asystole. Given calcium and bicarbonate. Accu-Chek within normal limits. Given epinephrine every 3 minutes. Rhythm checks every 2 minutes. Patient regained pulses Medical Decision Making Diagnostic Impression: Primary Impression: Sigmoid volvulus Additional Impressions: Cardiopulmonary arrest Aspiration pneumonia Proteinuria Hyperglycemia due to type 2 diabetes mellitus Sepsis UTI (urinary tract infection) Anemia, chronic disease Dehydration ER Course This CODE BLUE was performed on November 03. I was called to evaluate this patient in the ICU after he lost pulses. Initial rhythm asystole. Patient was admitted for sigmoid volvulus. Surgery initially told the family that the patient is too unstable for surgery Compression started. Patient previously intubated. Accu-Chek within normal limits. Given calcium and bicarbonate. Given epinephrine every 3 minutes. Rhythm checks every 2 minutes. After multiple rounds of CPR patient regained pulses Discuss prognosis with family told them prognosis is poor. They agreed that patient may not likely survive a subsequent arrest. They will discuss options for DO NOT RESUSCITATE Case discussed with admitting physician Dr. Gil Last Vital Signs Date Time Temp Pulse Resp B/P Pulse Ox O2 Delivery O2 Flow Rate FiO2 11/04/16 15:07 130 23 60 11/04/16 15:00 114/46 100 Mechanical Ventilator 11/04/16 12:00 100.2 11/03/16 01:30 2.0 Status: improved Disposition: ADMITTED INPATIENT Condition: Critical Referrals: NON PHYSICIAN (PCP) YUNIER ROBERTSON M.D. Nov 06, 2016 22:53
== END 2016-11-04 15:36 | disposition expired | DRG 871 ==
LOC: EDBD 21:16 → EMR 21:35 → EDBEDREQ 23:32 → ICU 23:55 → EDBEDREQDT 11-03 06:09 → EDBEDREQTM 11-03 06:09 → EDBEDREQSVC 11-03 06:09 → EDBEDREQ 11-03 06:09
PROC: 3E033XZ Introduction of Vasopressor into Peripheral Vein, Percutaneous Approach (ICD-10-PCS; principal; 2016-11-03)
PROC: B543ZZA Ultrasonography of Right Jugular Veins, Guidance (ICD-10-PCS; principal; 2016-11-03)
PROC: 0BH17EZ Insertion of Endotracheal Airway into Trachea, Via Natural or Artificial Opening (ICD-10-PCS; principal; 2016-11-03)
PROC: 5A1945Z Respiratory Ventilation, 24-96 Consecutive Hours (ICD-10-PCS; principal; 2016-11-03)
PROC: 05HM33Z Insertion of Infusion Device into Right Internal Jugular Vein, Percutaneous Approach (ICD-10-PCS; principal; 2016-11-03)
PROC: 5A12012 Performance of Cardiac Output, Single, Manual (ICD-10-PCS; 2016-11-04)
DX: A41.9 Sepsis, unspecified organism (principal); K56.2 Volvulus; J69.0 Pneumonitis due to inhalation of food and vomit; J96.01 Acute respiratory failure with hypoxia; R65.21 Severe sepsis with septic shock; N17.9 Acute kidney failure, unspecified; L89.150 Pressure ulcer of sacral region, unstageable; L89.159 Pressure ulcer of sacral region, unspecified stage; N39.0 Urinary tract infection, site not specified; J98.11 Atelectasis; R62.7 Adult failure to thrive; E86.0 Dehydration; E11.65 Type 2 diabetes mellitus with hyperglycemia; D63.8 Anemia in other chronic diseases classified elsewhere; G20 Parkinson's disease; F02.80 Dementia in other diseases classified elsewhere, unspecified severity, without behavioral disturbance, psychotic disturbance, mood disturbance, and anxiety; E87.6 Hypokalemia; I48.91 Unspecified atrial fibrillation; D47.3 Essential (hemorrhagic) thrombocythemia; I51.3 Intracardiac thrombosis, not elsewhere classified; L89.620 Pressure ulcer of left heel, unstageable; L89.610 Pressure ulcer of right heel, unstageable; Z79.82 Long term (current) use of aspirin; Z79.02 Long term (current) use of antithrombotics/antiplatelets
CPT/HCPCS: 36415; 36600; 71010; 74000; 74176; 80048; 80053; 81003; 82550; 82553; 82803; 82962; 83605; 84484; 85007; 85025; 85610; 85730; 87040; 87070; 87081; 87086; 87181; 87205; 92950; 93005; 94002; 94003; J0171; J2370